=== PATIENT | male | born 1940 | race Caucasian/White ===

== ENCOUNTER 2018-04-18 04:15 | Inpatient (IN) ==
--- NOTE | 2018-04-18 04:33 | ED ---
HPI General Stated Complaint: EVAC/Weakness Time Seen by Provider: 04/18/18 04:21 History of Present Illness HPI Narrative: pt from home where he lives with invalid , pt has pressure ulcer getting worse on his foot and now has purulent discharge dark discoloraation possible ulceration necrotic or gangrene appearing foot Related Data Allergies Allergy/AdvReac Type Severity Reaction Status Date / Time No Known Allergies Allergy Verified 04/18/18 04:40 Review of Systems ROS: all other systems reviewed are negative Exam Narrative Exam Narrative: GENERAL: pt is awake but Ox2 only SKIN: right foot is mottled with a large erosion ulcerating foot heel 7 cm x 10 cm purulent odorous HEAD: Atraumatic. Normocephalic. EYES: Pupils equal and round. No scleral icterus. No injection or drainage. ENT: No nasal bleeding or discharge. Mucous membranes pink and moist. NECK: Trachea midline. No JVD. CARDIOVASCULAR: Regular rate and rhythm. RESPIRATORY: No accessory muscle use. Clear to auscultation. Breath sounds equal bilaterally. GASTROINTESTINAL: Abdomen soft, non-tender, nondistended. Hepatic and splenic margins not palpable. MUSCULOSKELETAL: Extremities lower edema R> L and ulcer 10 x 7 cm to right heel pressure ulcer now necrotic NEUROLOGICAL: Awake and alert. PSYCHIATRIC: OX2 . Medical Decision Making Differential Diagnosis Differential Diagnosis: necrotic ulcer to right foot , diabetic ulcer, pressure ulcer, sepsis , gangrene ulcer other Lab Data Result diagrams: 04/18/18 04:50 04/18/18 04:50 Discharge Plan Physicians Team ED Provider: Leif Locke Status ED Status: With Doctor
[2018-04-18] MEDS ORDERED: Vancomycin Inj 1,000 MG in Sodium Chlor 0.9% Inj 250 ML IV.SIG ONE (04:56)
[2018-04-18] MEDS ORDERED: Piperacil/Tazo 3.375 GM Premix 50 ML IV.SIG ONE (04:56)
[2018-04-18 04:59] LABS: Baso # (Auto) 0.2 th/mm3 (0.0-0.2); Baso % (Auto) 0.7 % (0.0-2.0); Hematocrit 32.4 % (39.0-51.0); Hemoglobin 10.8 gm/dL (13.0-17.0); Lymph # (Auto) 1.1 th/mm3 (1.0-4.8); Lymph % (Auto) 4.2 % (9.0-44.0); Mean Corpuscular HGB Conc 33.4 % (32.0-36.0); Mean Corpuscular Hemoglobin 29.4 pg (27.0-34.0); Mean Platelet Volume 7.9 fL (7.0-11.0); Mono # (Auto) 0.9 th/mm3 (0.0-0.9); Mono % (Auto) 3.5 % (0.0-8.0); Neut # (Auto) 24.4 th/mm3 (1.8-7.7); Neut % (Auto) 91.6 % (16.0-70.0); Platelet Count 318 th/mm3 (150-450); Red Blood Count 3.68 mil/mm3 (4.50-5.90); Red Cell Distribution Width 13.9 % (11.6-17.2); White Blood Count 26.6 th/mm3 (4.0-11.0)
[2018-04-18] MEDS ORDERED: Vancomycin Consult Pharmacy OTHER PRN (05:11)
[2018-04-18] MEDS ORDERED: Acetaminophen 325 MG Tablet PO PRN (05:12)
[2018-04-18] MEDS ORDERED: Bisacodyl 10 MG Supp RECTAL PRN (05:12)
[2018-04-18 05:16] LABS: Chloride 87 meq/L (98-107); Potassium 4.2 meq/L (3.5-5.1); Sodium 127 meq/L (136-145)
[2018-04-18 05:19] LABS: Calcium 8.3 mg/dL (8.5-10.1)
[2018-04-18 05:20] LABS: Albumin 2.1 g/dL (3.4-5.0); Anion Gap 10 meq/L (5-15); Blood Urea Nitrogen 28 mg/dL (7-18); Carbon Dioxide 30.3 meq/L (21.0-32.0); Glucose,Random 180 mg/dL (74-106); Lipase 32 U/L (73-393)
--- NOTE | 2018-04-18 05:20 | XR ---
EXAM DATE: 04/18/2018 5:16 AM EST AGE/SEX: 77 years / Male INDICATIONS: Cough CLINICAL DATA: This is the patient's initial encounter. Patient reports that signs and symptoms have been present for 1 day and indicates a pain score of 0/10. MEDICAL/SURGICAL HISTORY: None. CABG. COMPARISON: No prior exams available for comparison. FINDINGS: A single AP view of the chest demonstrates the lungs to be symmetrically aerated without evidence of mass, infiltrate or effusion. The cardiomediastinal contours are unremarkable. Osseous structures a re intact. CONCLUSION: Negative examination. Numerous median sternotomy wires. Lungs are clear. Electronically signed by: Esa Roa MD 04/18/2018 5:18 AM EST
[2018-04-18 05:23] LABS: Alanine Aminotransferase 21 U/L (12-78); Aspartate Aminotransferase 32 U/L (15-37); Glomerular Filtration Rate 49 mL/min (>89)
[2018-04-18 05:25] LABS: Total Protein 7.1 g/dL (6.4-8.2)
[2018-04-18 05:26] LABS: Alkaline Phosphatase 108 U/L (45-117)
[2018-04-18] MEDS ORDERED: Vancomycin Inj 500 MG in Sodium Chlor 0.9% Inj 100 ML IV.SIG ONE (06:00)
[2018-04-18] MEDS: Sod Chloride 0.9% Inj 1,000 ML IV.CONT SCH ×5 (08:02→23:06)
[2018-04-18] MEDS: Heparin - SQ 10,000 UNITS/ML Vial SQ SCH ×2 (08:02→20:13)
[2018-04-18] MEDS: Senna/Docusate Sodium 8.6/50 MG Tablet PO SCH ×2 (08:03→20:13)
[2018-04-18] MEDS ORDERED: Dextrose 50% in Water 50 ML Vial IV.PUSH PRN (08:10)
[2018-04-18] MEDS: Insulin NovoLOG Aspart Correctional Sugar Inj SQ SCH ×4 (08:49→20:22)
--- NOTE | 2018-04-18 12:12 | P.HP ---
History of Present Illness Primary Care Physician: UNKNOWN Chief Complaint: Foot infection Review of Systems All other systems reviewed negative except as stated in HPI [facility] - History History Provided By: Patient - Medical History Medical History: Medical History (Last Reviewed 04/18/18 @ 12:11 by Pema Monzon) COPD (chronic obstructive pulmonary disease) Depression Diabetes Heart attack Non-healing wound of right heel - Surgical History Surgical History: Surgical History (Last Reviewed 04/18/18 @ 12:11 by Pema Monzon) Amputation of left lower extremity below knee H/O heart artery stent - Social History I have reviewed the patient's Social History: Yes - Tobacco History Second Hand Smoke Exposure: No Tobacco Use In Past 30 Days: No Smoking Status: Former smoker - Alcohol History How Often Do You Have a Drink Containing Alcohol: Never - Substance Use History Substance History: No History of Abuse - Travel History Recent Travel in the [facility] Within the Last 8 Weeks: No Recent Travel Out of the Country Within the Last 8 Weeks: No - Immunization History Tetanus Immunization: Unsure Medications and Allergies Active Medications: Active Medications Acetaminophen (Tylenol) 650 mg PO Q4H PRN PRN Reason: Temp > 100.4 OR PAIN 1-4 Hydrocodone Bitart/Acetaminophen ([place] 5/325) 1 tab PO Q6H PRN PRN Reason: PAIN 5-10 Last Admin: 04/18/18 08:03 Dose: 1 tab Al Hydroxide/Mg Hydroxide (Milk Of Magnabhijit Liq) 30 ml PO Q12H PRN PRN Reason: Mild Constipation Bisacodyl (Dulcolax Supp) 10 mg RECTAL DAILY PRN PRN Reason: SEVERE CONSITIPATION Dextrose (D50w Vial) 50 ml IV.PUSH UNSCH PRN PRN Reason: PER HYPOGLYCEMIA PROTOCOL Glucagon (Glucagon Inj) 1 mg OTHER PRN PRN PRN Reason: for Hypoglycemia Protocol Heparin Sodium (Porcine) (Heparin Inj) 5,000 units SQ Q12HR [facility] Last Admin: 04/18/18 08:02 Dose: 5,000 units Cefepime HCl 1,000 mg/ Sodium (Chloride) 100 mls @ 200 mls/hr IV.SIG Q12H [facility] Sodium Chloride (Ns Inj) 1,000 mls @ 100 mls/hr IV.CONT .Q10H [facility] Last Admin: 04/18/18 08:02 Dose: 100 mls/hr Vancomycin HCl 1,500 mg/ (Sodium Chloride) 515 mls @ 250 mls/hr IV.SIG Q18H [facility] Insulin Aspart (Novolog Insulin Correctional Sugar Inj) 0 unit SQ ACHS [facility]; Protocol Last Admin: 04/18/18 08:49 Dose: 3 unit Lactulose (Lactulose Liq) 30 ml PO DAILY PRN PRN Reason: SEVERE CONSITIPATION Miscellaneous Information ([facility] Ordered Lab Info) 1 each OTHER ONCE ONE Stop: 04/20/18 11:46 Ondansetron HCl (Zofran Inj) 4 mg IV.PUSH Q6H PRN PRN Reason: NAUSEA OR VOMITING Pharmacy Profile Note (Vancomycin Consult Pharmacy) 1 each OTHER UNSCH PRN PRN Reason: Pharmacy to dose Senna/Docusate Sodium (Genia-Colace) 1 tab PO BID [facility] Last Admin: 04/18/18 08:03 Dose: 1 tab Sennosides (Senokot) 17.2 mg PO Q12H PRN PRN Reason: Moderate Constipation Allergies Allergy/AdvReac Type Severity Reaction Status Date / Time No Known Allergies Allergy Verified 04/18/18 04:40 Home Medications Medication Instructions Recorded Confirmed Type aspirin 325 mg PO DAILY 04/18/18 04/18/18 History clopidogrel [Plavix] 75 mg PO DAILY 04/18/18 04/18/18 History fluoxetine [Prozac] 10 mg PO BID 04/18/18 04/18/18 History gabapentin 300 mg PO BID 04/18/18 04/18/18 History insulin NPH and regular human 25 unit SUBCUT QPM 04/18/18 04/18/18 History [Humulin 70/30 U-100 Insulin] insulin NPH and regular human 30 unit SUBCUT QAM 04/18/18 04/18/18 History [Humulin 70/30 U-100 Insulin] losartan 100 mg PO DAILY 04/18/18 04/18/18 History oxycodone-acetaminophen [Percocet] 1 tab PO Q4H PRN 04/18/18 04/18/18 History simvastatin 40 mg PO QPM 04/18/18 04/18/18 History sotalol [Sotalol AF] 80 mg PO Q12H 04/18/18 04/18/18 History temazepam [Restoril] 15 mg PO HS PRN 04/18/18 04/18/18 History Exam Vital signs: Vital Signs 04/18/18 05:23 04/18/18 05:28 04/18/18 08:00 Temperature 99.8 F H 98.2 F Pulse Rate 72 70 Respiratory Rate 18 20 Blood Pressure 134/62 124/60 Pulse Oximetry 90 L 95 97 04/18/18 08:41 Temperature Pulse Rate Respiratory Rate 18 Blood Pressure Pulse Oximetry Intake & Output 04/17/18 04/18/18 04/18/18 18:59 06:59 18:59 Intake Total 50 / 50 350 / 350 Balance 50 / 50 350 / 350 Weight 108.862 kg Intake: IV 50 / 50 350 / 350 Zosyn 3.375 GM Premix 50 ML @ 50 / 50 100 mls/hr IV.SIG ONCE ONE Rx#: [id number] Vancomycin Inj 1,000 MG In NS 250 / 250 Inj 250 ML @ 250 mls/hr IV.SIG ONCE ONE Rx#:[id number] Vancomycin Inj 500 MG In NS Inj 100 / 100 100 ML @ 200 mls/hr IV.SIG ONCE ONE Rx#:[id number] Narrative: GENERAL: Well-developed, well-nourished patient in [facility]. SKIN: Warm and dry. No rash. HEAD: Normocephalic. Atraumatic. EYES: Pupils equal and round. No scleral icterus. No injection or drainage. ENT: No nasal bleeding or discharge. Mucous membranes pink and moist. NECK: Supple. Trachea midline. CARDIOVASCULAR: Regular rate and rhythm. S1, S2 noted. No murmur appreciated. RESPIRATORY: No accessory muscle use. Clear to auscultation. Breath sounds equal bilaterally. GASTROINTESTINAL: Abdomen soft, non-tender, nondistended. Normoactive bowel sounds x4. MUSCULOSKELETAL: No obvious deformities. Extremities without clubbing, cyanosis , or edema. NEUROLOGICAL: Awake and alert. No obvious cranial nerve deficits. Motor grossly within normal limits. 5/5 muscle strength in bilateral upper and lower extremities. Normal speech. PSYCHIATRIC: Appropriate mood and affect; insight and judgment normal. Results - Labs CBC & Chem 7: 04/18/18 04:50 04/18/18 04:50 Labs: Laboratory Results - last 24 hr 04/18/18 04/18/18 04/18/18 04:50 04:50 04:50 CBC w Diff Auto diff final WBC 26.6 H RBC 3.68 L Hgb 10.8 L Hct 32.4 L MCV 88.0 MCH 29.4 MCHC 33.4 RDW 13.9 Plt Count 318 MPV 7.9 Neut % (Auto) 91.6 H Lymph % (Auto) 4.2 L [place] % (Auto) 3.5 Eos % (Auto) 0.0 Baso % (Auto) 0.7 Neut # (Auto) 24.4 H Lymph # (Auto) 1.1 [place] # (Auto) 0.9 Eos # (Auto) 0.0 Baso # (Auto) 0.2 WBC Differential . Differential Comment . Sodium 127 L Potassium 4.2 Chloride 87 L Carbon Dioxide 30.3 Anion Gap 10 BUN 28 H Creatinine 1.40 H Estimated GFR 49 L POC Glucose Random Glucose 180 H Lactic Acid 1.5 Calcium 8.3 L Total Bilirubin 1.3 H AST 32 ALT 21 Alkaline Phosphatase 108 Total Protein 7.1 Albumin 2.1 L Lipase 32 L 04/18/18 04/18/18 08:06 11:27 CBC w Diff WBC RBC Hgb Hct MCV MCH MCHC RDW Plt Count MPV Neut % (Auto) Lymph % (Auto) [place] % (Auto) Eos % (Auto) Baso % (Auto) Neut # (Auto) Lymph # (Auto) [place] # (Auto) Eos # (Auto) Baso # (Auto) WBC Differential Differential Comment Sodium Potassium Chloride Carbon Dioxide Anion Gap BUN Creatinine Estimated GFR POC Glucose 236 H 321 H Random Glucose Lactic Acid Calcium Total Bilirubin AST ALT Alkaline Phosphatase Total Protein Albumin Lipase - Imaging Impressions Chest X-Ray 04/18/18 04:48 CONCLUSION: Negative examination. Numerous median sternotomy wires. Lungs are clear. Caprini VTE Risk Assessment Caprini VTE Risk Assessment: Moderate/High Risk (score >= 2) Caprini Risk Assessment Model: Point Value = 1 Point Value = 2 Point Value = 3 Point Value = 5 Age 41-60 Minor surgery BMI > 25 kg/m2 Swollen legs Varicose veins or History of unexplained or recurrent spontaneous Oral contraceptives or hormone replacement Sepsis (< 1 month) Serious lung disease, including pneumonia (< 1 month) Abnormal pulmonary function Acute myocardial infarction Congestive heart failure (< 1 month) History of inflammatory bowel disease Medical patient at bed rest Age 61-74 Arthroscopic surgery Major open surgery (> 45 min) Laparoscopic surgery (> 45 min) Malignancy Confined to bed (> 72 hours) Immobilizing plaster cast Central venous access Age >= 75 History of VTE Family history of VTE Factor V Leiden Prothrombin [id number] Lupus anticoagulant Anticardiolipin antibodies Elevated serum homocysteine Heparin-induced thrombocytopenia Other congenital or acquired thrombophilia Stroke (< 1 month) Elective arthroplasty Hip, pelvis, or leg fracture Acute spinal cord injury (< 1 month) Prophylaxis Regimen: Total Risk Factor Score Risk Level Prophylaxis Regimen 0-1 Low Early ambulation 2 Moderate Order ONE of the following: *Sequential Compression Device (SCD) *Heparin 5000 units SQ BID 3-4 Higher Order ONE of the following medications: *Heparin 5000 units SQ TID *Enoxaparin/Lovenox 40 mg SQ daily (WT < 150 kg, CrCl > 30 mL/min) *Enoxaparin/Lovenox 30 mg SQ daily (WT < 150 kg, CrCl > 10-29 mL/min) *Enoxaparin/Lovenox 30 mg SQ BID (WT < 150 kg, CrCl > 30 mL/min) AND/OR *Sequential Compression Device (SCD) 5 or more Highest Order ONE of the following medications: *Heparin 5000 units SQ TID (Preferred with Epidurals) *Enoxaparin/Lovenox 40 mg SQ daily (WT < 150 kg, CrCl > 30 mL/min) *Enoxaparin/Lovenox 30 mg SQ daily (WT < 150 kg, CrCl > 10-29 mL/min) *Enoxaparin/Lovenox 30 mg SQ BID (WT < 150 kg, CrCl > 30 mL/min) AND *Sequential Compression Device (SCD)
[2018-04-18] MEDS ORDERED: Insulin Detemir Inj 1,000 UNIT/10 ML Vial SQ ONE (12:25)
--- NOTE | 2018-04-18 12:25 | P.HPIM ---
History of Present Illness Primary Care Physician: UNKNOWN History of Present Illness: Patient is a 77-year-old male with a diagnosis of hypertension, does lipidemia, poorly controlled diabetes, left BKA, coronary artery disease status post CABG in the past. The patient presented to our facility with complaints of foul- smelling right lateral foot. The patient has a dark necrotic ulceration of the right foot with a harsh foul smell. He was evaluated in the emergency department found to have a significantly elevated WBC count, and a low-grade fever. He also has some pain of the right lateral foot. She he denies any fevers or chills while at home, no abdominal pain, no chest pain, no shortness of breath. He does not have any other complaints. Family history significant for diabetes, hypertension. Review of Systems All other systems reviewed negative except as stated in HPI [facility] - History History Provided By: Patient - Medical History Medical History: Medical History (Last Updated 04/18/18 @ 16:55 by Elvie Mejia MD) COPD (chronic obstructive pulmonary disease) Depression Diabetes Diabetic foot infection Heart attack MRSA (methicillin resistant Staphylococcus aureus) infection Non-healing wound of right heel PVD (peripheral vascular disease) - Surgical History Surgical History: Surgical History (Last Updated 04/18/18 @ 16:56 by Elvie Mejia MD) Amputation of left lower extremity below knee H/O heart artery stent Hx of CABG - Tobacco History Second Hand Smoke Exposure: No Tobacco Use In Past 30 Days: No Smoking Status: Former smoker - Alcohol History How Often Do You Have a Drink Containing Alcohol: Never - Substance Use History Substance History: No History of Abuse - Travel History Recent Travel in the [place] Within the Last 8 Weeks: No Recent Travel Out of the Country Within the Last 8 Weeks: No - Immunization History Tetanus Immunization: Unsure Medications and Allergies Active Medications: Active Medications Acetaminophen (Tylenol) 650 mg PO Q4H PRN PRN Reason: Temp > 100.4 OR PAIN 1-4 Hydrocodone Bitart/Acetaminophen ([place] 5/325) 1 tab PO Q6H PRN PRN Reason: PAIN 5-10 Last Admin: 04/18/18 08:03 Dose: 1 tab Al Hydroxide/Mg Hydroxide (Milk Of Magnesia Liq) 30 ml PO Q12H PRN PRN Reason: Mild Constipation Bisacodyl (Dulcolax Supp) 10 mg RECTAL DAILY PRN PRN Reason: SEVERE CONSITIPATION Dextrose (D50w Vial) 50 ml IV.PUSH UNSCH PRN PRN Reason: PER HYPOGLYCEMIA PROTOCOL Glucagon (Glucagon Inj) 1 mg OTHER PRN PRN PRN Reason: for Hypoglycemia Protocol Heparin Sodium (Porcine) (Heparin Inj) 5,000 units SQ Q12HR [facility] Last Admin: 04/18/18 08:02 Dose: 5,000 units Sodium Chloride (Ns Inj) 1,000 mls @ 100 mls/hr IV.CONT .Q10H [facility] Last Admin: 04/18/18 08:02 Dose: 100 mls/hr Vancomycin HCl 1,500 mg/ (Sodium Chloride) 515 mls @ 250 mls/hr IV.SIG Q18H [facility] Piperacillin/Tazobactam/Dextrose (Zosyn 3.375 Gm Premix) 50 mls @ 100 mls/hr IV.SIG Q6H [facility] Insulin Aspart (Novolog Insulin Correctional Sugar Inj) 0 unit SQ ACHS [facility]; Protocol Last Admin: 04/18/18 08:49 Dose: 3 unit Lactulose (Lactulose Liq) 30 ml PO DAILY PRN PRN Reason: SEVERE CONSITIPATION Miscellaneous Information ([facility] Ordered Lab Info) 1 each OTHER ONCE ONE Stop: 04/20/18 11:46 Ondansetron HCl (Zofran Inj) 4 mg IV.PUSH Q6H PRN PRN Reason: NAUSEA OR VOMITING Pharmacy Profile Note (Vancomycin Consult Pharmacy) 1 each OTHER UNSCH PRN PRN Reason: Pharmacy to dose Senna/Docusate Sodium (Genia-Colace) 1 tab PO BID [facility] Last Admin: 04/18/18 08:03 Dose: 1 tab Sennosides (Senokot) 17.2 mg PO Q12H PRN PRN Reason: Moderate Constipation Allergies Allergy/AdvReac Type Severity Reaction Status Date / Time No Known Allergies Allergy Verified 04/18/18 04:40 Home Medications Medication Instructions Recorded Confirmed Type aspirin 325 mg PO DAILY 04/18/18 04/18/18 History clopidogrel [Plavix] 75 mg PO DAILY 04/18/18 04/18/18 History fluoxetine [Prozac] 10 mg PO BID 04/18/18 04/18/18 History gabapentin 300 mg PO BID 04/18/18 04/18/18 History insulin NPH and regular human 25 unit SUBCUT QPM 11/18/18 11/18/18 History [Humulin 70/30 U-100 Insulin] insulin NPH and regular human 30 unit SUBCUT QAM 04/18/18 04/18/18 History [Humulin 70/30 U-100 Insulin] losartan 100 mg PO DAILY 04/18/18 04/18/18 History oxycodone-acetaminophen [Percocet] 1 tab PO Q4H PRN 04/18/18 04/18/18 History simvastatin 40 mg PO QPM 04/18/18 04/18/18 History sotalol [Sotalol AF] 80 mg PO Q12H 04/18/18 04/18/18 History temazepam [Restoril] 15 mg PO HS PRN 04/18/18 04/18/18 History Exam Vital signs: Vital Signs 04/18/18 05:23 04/18/18 05:28 04/18/18 08:00 Temperature 99.8 F H 98.2 F Pulse Rate 72 70 Respiratory Rate 18 20 Blood Pressure 134/62 124/60 Pulse Oximetry 90 L 95 97 04/18/18 08:41 Temperature Pulse Rate Respiratory Rate 18 Blood Pressure Pulse Oximetry Intake & Output 04/17/18 04/18/18 04/18/18 18:59 06:59 18:59 Intake Total 50 / 50 350 / 350 Balance 50 / 50 350 / 350 Weight 108.862 kg Intake: IV 50 / 50 350 / 350 Zosyn 3.375 GM Premix 50 ML @ 50 / 50 100 mls/hr IV.SIG ONCE ONE Rx#: [id number] Vancomycin Inj 1,000 MG In NS 250 / 250 Inj 250 ML @ 250 mls/hr IV.SIG ONCE ONE Rx#:[id number] Vancomycin Inj 500 MG In NS Inj 100 / 100 100 ML @ 200 mls/hr IV.SIG ONCE ONE Rx#:[id number] Narrative: General patient complains of mild pain of the right lateral foot. HEENT extraocular movements are intact Cardiovascular S1-S2 audible, RRR, no murmurs rubs or gallops Respiratory clear to auscultation bilaterally Abdomen soft, nontender, nondistended, normal bowel sounds Extremities left BKA, right foot with ulceration on the lateral side of the right foot, foul smell from the ulceration. Neuro patient can move all 4 extremities, sensation is intact bilaterally Results - Labs CBC & Chem 7: 04/18/18 04:50 04/18/18 04:50 Labs: Short CBC 04/18/18 Range/Units 04:50 WBC 26.6 H (4.0-11.0) th/mm3 Hgb 10.8 L (13.0-17.0) gm/dL Hct 32.4 L (39.0-51.0) % Plt Count 318 (150-450) th/mm3 BMP 04/18/18 04:50 Sodium 127 L Potassium 4.2 Chloride 87 L Carbon Dioxide 30.3 BUN 28 H Creatinine 1.40 H Calcium 8.3 L Liver Function 04/18/18 Range/Units 04:50 Total Bilirubin 1.3 H (0.2-1.0) mg/dL AST 32 (15-37) U/L ALT 21 (12-78) U/L Alkaline Phosphatase 108 (45-117) U/L Albumin 2.1 L (3.4-5.0) g/dL - Imaging Impressions Chest X-Ray 04/18/18 04:48 CONCLUSION: Negative examination. Numerous median sternotomy wires. Lungs are clear. Caprini VTE Risk Assessment Caprini VTE Risk Assessment: Moderate/High Risk (score >= 2) Caprini Risk Assessment Model: Point Value = 1 Point Value = 2 Point Value = 3 Point Value = 5 Age 41-60 Minor surgery BMI > 25 kg/m2 Swollen legs Varicose veins or History of unexplained or recurrent spontaneous Oral contraceptives or hormone replacement Sepsis (< 1 month) Serious lung disease, including pneumonia (< 1 month) Abnormal pulmonary function Acute myocardial infarction Congestive heart failure (< 1 month) History of inflammatory bowel disease Medical patient at bed rest Age 61-74 Arthroscopic surgery Major open surgery (> 45 min) Laparoscopic surgery (> 45 min) Malignancy Confined to bed (> 72 hours) Immobilizing plaster cast Central venous access Age >= 75 History of VTE Family history of VTE Factor V Leiden Prothrombin [id number] Lupus anticoagulant Anticardiolipin antibodies Elevated serum homocysteine Heparin-induced thrombocytopenia Other congenital or acquired thrombophilia Stroke (< 1 month) Elective arthroplasty Hip, pelvis, or leg fracture Acute spinal cord injury (< 1 month) Prophylaxis Regimen: Total Risk Factor Score Risk Level Prophylaxis Regimen 0-1 Low Early ambulation 2 Moderate Order ONE of the following: *Sequential Compression Device (SCD) *Heparin 5000 units SQ BID 3-4 Higher Order ONE of the following medications: *Heparin 5000 units SQ TID *Enoxaparin/Lovenox 40 mg SQ daily (WT < 150 kg, CrCl > 30 mL/min) *Enoxaparin/Lovenox 30 mg SQ daily (WT < 150 kg, CrCl > 10-29 mL/min) *Enoxaparin/Lovenox 30 mg SQ BID (WT < 150 kg, CrCl > 30 mL/min) AND/OR *Sequential Compression Device (SCD) 5 or more Highest Order ONE of the following medications: *Heparin 5000 units SQ TID (Preferred with Epidurals) *Enoxaparin/Lovenox 40 mg SQ daily (WT < 150 kg, CrCl > 30 mL/min) *Enoxaparin/Lovenox 30 mg SQ daily (WT < 150 kg, CrCl > 10-29 mL/min) *Enoxaparin/Lovenox 30 mg SQ BID (WT < 150 kg, CrCl > 30 mL/min) AND *Sequential Compression Device (SCD) Assessment and Plan - Plan Patient is a 77-year-old male with a diagnosis of hypertension, does lipidemia, poorly controlled diabetes, left BKA, coronary artery disease status post CABG in the past. The patient presented to our facility with complaints of foul- smelling right lateral foot. The patient has a dark necrotic ulceration of the right foot with a harsh foul smell. He was evaluated in the emergency department found to have a significantly elevated WBC count, and a low-grade fever. He also has some pain of the right lateral foot. She he denies any fevers or chills while at home, no abdominal pain, no chest pain, no shortness of breath. He does not have any other complaints. 1. Severe Sepsis secondary to right diabetic foot ulcer 2. Acute kidney injury likely secondary to #1 Patient presented with the symptoms mentioned above. He has an elevated WBC count with a left shift, lactate is normal. There is a large necrotic foul-smelling wound on the right lateral foot. X-ray of the right foot ordered. ESR, CRP also ordered. We will follow up with recommendations from the english language arts teacher. Patient's antibiotics were adjusted. Continue vancomycin and Zosyn. Patient will be started on IV fluids. Blood cultures were drawn. We will follow-up results. 3. Poorly controlled diabetes Patient will be started on Levemir 10 units subcu nightly Continue low-dose insulin sliding scale. We will adjust his diabetes regimen as needed. H&P: Quality - VTE Deep Vein Thrombosis/Pulmonary Embolism Present on Admission: No
--- NOTE | 2018-04-18 13:20 | XR ---
EXAM DATE: 04/18/2018 1:16 PM EST AGE/SEX: 77 years / Male INDICATIONS: Necrotic right foot ulcer heel area, bacteremia CLINICAL DATA: This is the patient's initial encounter. Patient reports that signs and symptoms have been present for 2 months and indicates a pain score of 6/10. MEDICAL/SURGICAL HISTORY: . diabetes CABG. COMPARISON: No prior exams available for comparison. FINDINGS: AP and lateral views of the right foot demonstrate subcutaneous air overlying the plantar soft tissue s. The adjacent osseous structures demonstrate no abnormal demineralization or periosteal reaction. T he forefoot is significant for severe degenerative changes of the first digit MTP joint. The proximal phalanx of the second metatarsal appears subluxed dorsally. There has been resection of the mid and distal phalanx of the third digit, distal phalanx of the fourth digit. No evidence of radiopaque fore ign body. CONCLUSION: Soft tissue air overlying the plantar aspect of the foot with no osseous abnormality identified to kaur ggest osteomyelitis within this region. No radiopaque foreign body. Electronically signed by: Keturah Nixon MD 04/18/2018 1:19 PM EST
[2018-04-18] MEDS: Piperacil/Tazo 3.375 GM Premix 50 ML IV.SIG SCH ×2 (13:26→18:26)
[2018-04-18] MEDS ORDERED: amLODIPine 5 MG Tablet PO ONE (14:00)
[2018-04-18 14:42] LABS: Bilirubin,Urine Negative (Negative); Clarity,Urine Slightly Cloudy (Clear); Color,Urine Yellow (Yellw/Straw); Glucose,Urine (UA) 500 mg/dL (Negative); Leukocyte Esterase,Urine Negative (Negative); Nitrite,Urine Negative (Negative); PH,Urine 5.5 (5.0-8.5); Specific Gravity,Urine 1.025 (1.002-1.035); Urobilinogen,Urine 0.2 mg/dL (Less than 2)
[2018-04-18 14:45] LABS: Collection Time,Urine 1345 hours
[2018-04-18 14:47] LABS: Amorphous Sediment,Urine Moderate /hpf; RBC,Urine 0-3 /hpf (0-3); Squamous Epithelial Cell,Urine 0-5 /hpf (0-5); WBC,Urine 0-5 /hpf (0-5)
--- NOTE | 2018-04-18 17:07 | P.CONID ---
History of Present Illness Service: Infectious Disease Consult date: 04/18/18 Requesting Physician: Maria E Gage Reason for Consult: Evaluate patient with sepsis and DFI Primary Care Provider: UNKNOWN History of Present Illness: Patient seen and examined. Records reviewed. Patient is a very poor historian. I also called the and she is also not a very good historian. Patient is a 77-year-old male, brought into the hospital for further evaluation of worsening right pain. He also mentioned that he has been having cough for about a week to 2 weeks with some shortness of breath. According to the the patient had problem with his left foot when they were still living in [place], and this was around October 2017. He subsequently underwent left AKA and went to the custodial and apparently during that time that he was sick from the left foot he started developing a decubitus on his right heel. It had progressively worsened, and they moved here in the [place] area in March and establish with a primary care physician. He was referred to a wound care center in [facility] and has been going there for the last 6 weeks. There was a home health nurse that does the dressing changes on his right foot. The really could not tell me any details about how the foot looks because she stated that she is legally blind. Patient stated that it has been having some smell to it over the last 2 weeks, but he is not sure whether it was this color for that period of time. He was last seen by the wound care doctor about a week or so ago. Patient has not been on any antibiotics recently. According to the , he was also being evaluated by a vascular surgeon and has been seen twice. The pain has been worsening, so the patient was brought to the hospital for further evaluation and treatment. He has not had any fevers or chills at home. The home health nurses checks his vital signs. Since admission his temperature has been about 100. His WBC is elevated at 26,000. Plain film of his right foot did not show any evidence of osteomyelitis. He is currently on vancomycin and Zosyn. Infectious disease consultation has been requested to assist with evaluation and treatment. Review of Systems Constitutional: Reports fever(s), Reports lack of energy, Reports night sweats, Reports weakness Eyes: Denies discharge, Denies dry eyes Ears, Nose, Mouth, and Throat: Denies difficulty swallowing, Denies headache(s) , Denies nasal discharge, Denies sore throat Cardiovascular: Reports shortness of breath, Denies chest pain Respiratory: Reports chest congestion, Reports cough, Reports shortness of breath, Reports other (yellow phlegm) Gastrointestinal: Denies abdominal pain, Denies loose stools, Denies nausea, Denies pain with swallowing, Denies vomiting Genitourinary: Denies difficulty urinating, Denies painful urination Musculoskeletal: Reports muscle weakness Skin/Breast: Reports wounds, Denies rash Neurologic: Denies localized weakness PMFSH - History History Provided By: Patient - Medical History Medical History: Medical History (Last Updated 04/18/18 @ 16:55 by Elvie Mejia MD) COPD (chronic obstructive pulmonary disease) Depression Diabetes Diabetic foot infection Heart attack MRSA (methicillin resistant Staphylococcus aureus) infection Non-healing wound of right heel PVD (peripheral vascular disease) - Surgical History Surgical History: Surgical History (Last Updated 04/18/18 @ 16:56 by Elvie Mejia MD) Amputation of left lower extremity below knee H/O heart artery stent Hx of CABG - Tobacco History Second Hand Smoke Exposure: No Tobacco Use In Past 30 Days: No Smoking Status: Former smoker - Alcohol History How Often Do You Have a Drink Containing Alcohol: Never - Substance Use History Substance History: No History of Abuse - Travel History Recent Travel in the [place] Within the Last 8 Weeks: No Recent Travel Out of the Country Within the Last 8 Weeks: No - Immunization History Tetanus Immunization: Unsure Medications and Allergies Active Medications: Active Medications Acetaminophen (Tylenol) 650 mg PO Q4H PRN PRN Reason: Temp > 100.4 OR PAIN 1-4 Hydrocodone Bitart/Acetaminophen ([place] 5/325) 1 tab PO Q6H PRN PRN Reason: PAIN 5-10 Last Admin: 04/18/18 08:03 Dose: 1 tab Al Hydroxide/Mg Hydroxide (Milk Of Magnesia Liq) 30 ml PO Q12H PRN PRN Reason: Mild Constipation Amlodipine Besylate (Norvasc) 5 mg PO DAILY [facility] Aspirin (Aspirin) 325 mg PO DAILY [facility] Atorvastatin Calcium (Lipitor) 40 mg PO HS [facility] Bisacodyl (Dulcolax Supp) 10 mg RECTAL DAILY PRN PRN Reason: SEVERE CONSITIPATION Clopidogrel Bisulfate (Plavix) 75 mg PO DAILY [facility] Dextrose (D50w Vial) 50 ml IV.PUSH UNSCH PRN PRN Reason: PER HYPOGLYCEMIA PROTOCOL Fluoxetine HCl (Prozac) 10 mg PO BID [facility] Gabapentin (Neurontin) 300 mg PO BID [facility] Glucagon (Glucagon Inj) 1 mg OTHER PRN PRN PRN Reason: for Hypoglycemia Protocol Guaifenesin (Robitussin Liq) 600 mg PO BID PRN PRN Reason: COUGH Heparin Sodium (Porcine) (Heparin Inj) 5,000 units SQ Q12HR [facility] Last Admin: 04/18/18 08:02 Dose: 5,000 units Sodium Chloride (Ns Inj) 1,000 mls @ 100 mls/hr IV.CONT .Q10H [facility] Last Admin: 04/18/18 08:02 Dose: 100 mls/hr Vancomycin HCl 1,500 mg/ (Sodium Chloride) 515 mls @ 250 mls/hr IV.SIG Q18H [facility] Piperacillin/Tazobactam/Dextrose (Zosyn 3.375 Gm Premix) 50 mls @ 100 mls/hr IV.SIG Q6H [facility] Last Infusion: 04/18/18 14:00 Dose: Infused Sodium Chloride (Ns Inj) 1,000 mls @ 100 mls/hr IV.CONT .Q10H [facility] Last Admin: 04/18/18 13:27 Dose: 100 mls/hr Insulin Aspart (Novolog Insulin Correctional Sugar Inj) 0 unit SQ ACHS [facility]; Protocol Last Admin: 04/18/18 13:25 Dose: 7 unit Lactulose (Lactulose Liq) 30 ml PO DAILY PRN PRN Reason: SEVERE CONSITIPATION Miscellaneous Information ([facility] Ordered Lab Info) 1 each OTHER ONCE ONE Stop: 04/20/18 11:46 Ondansetron HCl (Zofran Inj) 4 mg IV.PUSH Q6H PRN PRN Reason: NAUSEA OR VOMITING Pharmacy Profile Note (Vancomycin Consult Pharmacy) 1 each OTHER UNSCH PRN PRN Reason: Pharmacy to dose Senna/Docusate Sodium (Genia-Colace) 1 tab PO BID [facility] Last Admin: 04/18/18 08:03 Dose: 1 tab Sennosides (Senokot) 17.2 mg PO Q12H PRN PRN Reason: Moderate Constipation Sotalol HCl (Betapace) 80 mg PO BID [facility] Allergies Allergy/AdvReac Type Severity Reaction Status Date / Time No Known Allergies Allergy Verified 04/18/18 04:40 Home Medications Medication Instructions Recorded Confirmed Type aspirin 325 mg PO DAILY 04/18/18 04/18/18 History clopidogrel [Plavix] 75 mg PO DAILY 04/18/18 04/18/18 History fluoxetine [Prozac] 10 mg PO BID 04/18/18 04/18/18 History gabapentin 300 mg PO BID 04/18/18 04/18/18 History insulin NPH and regular human 25 unit SUBCUT QPM 04/18/18 04/18/18 History [Humulin 70/30 U-100 Insulin] insulin NPH and regular human 30 unit SUBCUT QAM 04/18/18 04/18/18 History [Humulin 70/30 U-100 Insulin] losartan 100 mg PO DAILY 04/18/18 04/18/18 History oxycodone-acetaminophen [Percocet] 1 tab PO Q4H PRN 04/18/18 04/18/18 History simvastatin 40 mg PO QPM 04/18/18 04/18/18 History sotalol [Sotalol AF] 80 mg PO Q12H 04/18/18 04/18/18 History temazepam [Restoril] 15 mg PO HS PRN 04/18/18 04/18/18 History Exam Vital signs: Vital Signs 04/18/18 05:23 04/18/18 05:28 04/18/18 08:00 Temperature 99.8 F H 98.2 F Pulse Rate 72 70 Respiratory Rate 18 20 Blood Pressure 134/62 124/60 Pulse Oximetry 90 L 95 97 04/18/18 08:41 04/18/18 12:00 Temperature 99.8 F H Pulse Rate 76 Respiratory Rate 18 20 Blood Pressure 172/72 H Pulse Oximetry Intake & Output 04/17/18 04/18/18 04/18/18 18:59 06:59 18:59 Intake Total 50 / 50 640 / 640 Balance 50 / 50 640 / 640 Weight 108.862 kg Intake: IV 50 / 50 400 / 400 Zosyn 3.375 GM Premix 50 ML @ 50 / 50 50 / 50 100 mls/hr IV.SIG Q6H [facility] Rx#: [id number] Vancomycin Inj 1,000 MG In NS 250 / 250 Inj 250 ML @ 250 mls/hr IV.SIG ONCE ONE Rx#:[id number] Vancomycin Inj 500 MG In NS Inj 100 / 100 100 ML @ 200 mls/hr IV.SIG ONCE ONE Rx#:[id number] Oral 240 / 240 Narrative: Physical examination GENERAL: Patient is a well-nourished, well-developed male, awake and alert, having paroxysms of coughing during my exam, in mild respiratory distress. SKIN: Warm and dry. No generalized rash, no ecchymoses and no evidence of embolic lesions. HEAD: Atraumatic. Normocephalic. No temporal wasting, or tenderness. EYES: [place] conjunctiva. No petechia or hemorrhage. Pupils equal, round and reactive to light. Extraocular movements full and intact. No scleral icterus. No injection or drainage. EARS, NOSE AND THROAT: Nose without bleeding or purulent nasal discharge. No sinus tenderness. Mucous membranes pink and moist. No oral lesions noted. No exudate. No oral thrush. NECK: Trachea midline. Supple and not tender, no meningeal signs CARDIOVASCULAR: Regular rate and rhythm. No murmurs, rubs or gallops heard RESPIRATORY: Clear to auscultation. Breath sounds equal bilaterally. No rales , wheezing or rhonchi ABDOMEN: Soft, non-tender, nondistended. Bowel sounds present and normoactive. No guarding. No rebound. No organomegaly. EXTREMITIES: No clubbing, cyanosis. Well healed L BKA stump. RLE: swollen, with erythema from below the knee all the way to the foot. Has some dry wounds on his R leg. There is a black wound on his heel, with some purulent drainage, and surrounding erythema and bogginess, and with foul odor. The foot is warm. No calf tenderness. Well perfused and warm. NEUROLOGICAL: Awake and alert. Cranial nerves grossly intact. Motor grossly within normal limits. PSYCHIATRIC: Normal affect, calm and cooperative. LINE: No evidence of infection Results - Labs CBC & Chem 7: 04/18/18 04:50 04/18/18 04:50 Labs: Laboratory Results - last 24 hr 04/18/18 04/18/18 04/18/18 04:50 04:50 04:50 CBC w Diff Auto diff final WBC 26.6 H RBC 3.68 L Hgb 10.8 L Hct 32.4 L MCV 88.0 MCH 29.4 MCHC 33.4 RDW 13.9 Plt Count 318 MPV 7.9 Neut % (Auto) 91.6 H Lymph % (Auto) 4.2 L [place] % (Auto) 3.5 Eos % (Auto) 0.0 Baso % (Auto) 0.7 Neut # (Auto) 24.4 H Lymph # (Auto) 1.1 [place] # (Auto) 0.9 Eos # (Auto) 0.0 Baso # (Auto) 0.2 WBC Differential . Differential Comment . ESR Sodium 127 L Potassium 4.2 Chloride 87 L Carbon Dioxide 30.3 Anion Gap 10 BUN 28 H Creatinine 1.40 H Estimated GFR 49 L POC Glucose Random Glucose 180 H Lactic Acid 1.5 Calcium 8.3 L Total Bilirubin 1.3 H AST 32 ALT 21 Alkaline Phosphatase 108 C-Reactive Protein Total Protein 7.1 Albumin 2.1 L Lipase 32 L Ur Collection Type Urine Color Urine Clarity Urine pH Ur Specific [place] Urine Protein Urine Glucose (UA) Urine Ketones Urine Occult Blood Urine Nitrate Urine Bilirubin Urine Urobilinogen Ur Leukocyte Esterase Urine RBC Urine WBC Ur Squamous Epith Cells Amorphous Sediment Granular Casts Ur Microscopic Review Urine Collection Time 04/18/18 04/18/18 04/18/18 08:06 11:27 12:45 CBC w Diff WBC RBC Hgb Hct MCV MCH MCHC RDW Plt Count MPV Neut % (Auto) Lymph % (Auto) [place] % (Auto) Eos % (Auto) Baso % (Auto) Neut # (Auto) Lymph # (Auto) [place] # (Auto) Eos # (Auto) Baso # (Auto) WBC Differential Differential Comment ESR 103 H Sodium Potassium Chloride Carbon Dioxide Anion Gap BUN Creatinine Estimated GFR POC Glucose 236 H 321 H Random Glucose Lactic Acid Calcium Total Bilirubin AST ALT Alkaline Phosphatase C-Reactive Protein Total Protein Albumin Lipase Ur Collection Type Urine Color Urine Clarity Urine pH Ur Specific [place] Urine Protein Urine Glucose (UA) Urine Ketones Urine Occult Blood Urine Nitrate Urine Bilirubin Urine Urobilinogen Ur Leukocyte Esterase Urine RBC Urine WBC Ur Squamous Epith Cells Amorphous Sediment Granular Casts Ur Microscopic Review Urine Collection Time 04/18/18 04/18/18 12:45 13:45 CBC w Diff WBC RBC Hgb Hct MCV MCH MCHC RDW Plt Count MPV Neut % (Auto) Lymph % (Auto) [place] % (Auto) Eos % (Auto) Baso % (Auto) Neut # (Auto) Lymph # (Auto) [place] # (Auto) Eos # (Auto) Baso # (Auto) WBC Differential Differential Comment ESR Sodium Potassium Chloride Carbon Dioxide Anion Gap BUN Creatinine Estimated GFR POC Glucose Random Glucose Lactic Acid Calcium Total Bilirubin AST ALT Alkaline Phosphatase C-Reactive Protein 37.00 H Total Protein Albumin Lipase Ur Collection Type Clean catch Urine Color Yellow Urine Clarity Slightly cloudy Urine pH 5.5 Ur Specific [place] 1.025 Urine Protein 30 H Urine Glucose (UA) 500 H Urine Ketones Negative Urine Occult Blood Small H Urine Nitrate Negative Urine Bilirubin Negative Urine Urobilinogen 0.2 Ur Leukocyte Esterase Negative Urine RBC 0-3 Urine WBC 0-5 Ur Squamous Epith Cells 0-5 Amorphous Sediment Moderate H Granular Casts 1-3 H Ur Microscopic Review Microscopic reviewed Urine Collection Time 1345 - Imaging Impressions Foot X-Ray 04/18/18 00:00 CONCLUSION: Soft tissue air overlying the plantar aspect of the foot with no osseous abnormality identified to suggest osteomyelitis within this region. No radiopaque foreign body. Chest X-Ray 04/18/18 04:48 CONCLUSION: Negative examination. Numerous median sternotomy wires. Lungs are clear. Assessment and Plan - Plan Impression Possible sepsis due to DFI, has ischemic infected decubitus R heel PVD DM COPD - C/O SOB, ?exacerbation, CXR clear Renal insufficiency, ?baseline, ?worsened by sepsis Recommendation Continue Abx: vancomycin and Zosyn Podiatry evaluation MRI R foot Vascular evaluation Follow C/S Follow temps Follow CBC Arterial doppler Monitor progress I will determine course of Rx once work-up is completed I will follow along with you Thank you for this consultation
[2018-04-18] MEDS: Gabapentin 300 MG Capsule PO SCH (20:12)
[2018-04-18] MEDS: FLUoxetine 10 MG Capsule PO SCH (20:13)
[2018-04-19] MEDS: Piperacil/Tazo 3.375 GM Premix 50 ML IV.SIG SCH ×4 (01:01→18:17)
[2018-04-19] MEDS: Vancomycin Inj 1,500 MG in Sodium Chlor 0.9% Inj 500 ML IV.SIG SCH ×2 (01:21→18:52)
[2018-04-19] MEDS: Sod Chloride 0.9% Inj 1,000 ML IV.CONT SCH ×5 (03:07→23:48)
--- NOTE | 2018-04-19 08:14 | ECHRPT ---
EXAM DATE: 04/19/2018 7:59 AM EST AGE/SEX: 77 years / Male INDICATIONS: Necrotic foot ulcer CLINICAL DATA: This is the patient's initial encounter. Patient reports that signs and symptoms have been present for 1 month and indicates a pain score of 9/10. MEDICAL/SURGICAL HISTORY: . COPD, depression, diabetes mellitus, diabetic foot infection, heart attack, MRSA, nonhealing heel wound right, peripheral vascular disease . left AKA, heart artery tracy nt, cabg COMPARISON: No prior exams available for comparison. TECHNIQUE: Four-cuff ankle and brachial pressures were obtained. Pulse cuff waveform tracings of the ankles were recorded, and ankle-brachial indices were calculated. PRESSURES (mmHg): Brachial (arm) : RIGHT: 130, LEFT: IV SITE Ankle : RIGHT: 40, LEFT: AKA SCOOBY : RIGHT: 0.31, LEFT: N/A FINDINGS: Pulsed-Cuff Waveform: There are good upstroke and a dicrotic downstroke of the tracings. Other: Patient has amputation on the left. CONCLUSION: 1. Severe reduction of the SCOOBY on the right. Electronically signed by: Javi Robbins MD 04/19/2018 8:12 AM EST
[2018-04-19] MEDS: Insulin NovoLOG Aspart Correctional Sugar Inj SQ SCH ×5 (08:30→20:58)
[2018-04-19] MEDS: Heparin - SQ 10,000 UNITS/ML Vial SQ SCH ×2 (08:39→20:59)
[2018-04-19] MEDS: Senna/Docusate Sodium 8.6/50 MG Tablet PO SCH ×2 (08:39→20:58)
[2018-04-19] MEDS: Gabapentin 300 MG Capsule PO SCH ×2 (08:39→20:57)
[2018-04-19] MEDS: amLODIPine 5 MG Tablet PO SCH (08:40)
[2018-04-19] MEDS ORDERED: FLUoxetine 20 MG Capsule PO SCH (09:00)
--- NOTE | 2018-04-19 09:42 | P.PNIM ---
Subjective Interval history: f/u; right foot infection in no acute distress. has some pain to the right foot. no fever. d/w the RN and no acute issues over night. Physical Exam Vital signs: Vital Signs 04/18/18 12:00 04/18/18 16:00 04/18/18 20:00 Temperature 99.8 F H 100 F H 103.0 F H Pulse Rate 76 85 94 H Respiratory Rate 20 20 18 Blood Pressure 172/72 H 130/59 L 174/73 H Pulse Oximetry 91 L 93 L 92 L 04/19/18 00:00 04/19/18 04:00 04/19/18 08:00 Temperature 97.8 F 98 F 97.7 F Pulse Rate 61 60 60 Respiratory Rate 16 16 Blood Pressure 100/74 103/53 L 143/66 H Pulse Oximetry 92 L 92 L 95 Intake & Output 04/18/18 04/19/18 04/19/18 18:59 06:59 18:59 Intake Total 1900 / 1900 2810 / 2810 Output Total 300 / 300 400 / 400 Balance 1600 / 1600 2410 / 2410 Weight 108.8 kg Intake: IV 1300 / 1300 2450 / 2450 NS Inj 1,000 ML @ 100 mls/hr IV 900 / 900 1750 / 1750 .CONT .Q10H [facility] Rx#:[id number] Zosyn 3.375 GM Premix 50 ML @ 50 / 50 150 / 150 100 mls/hr IV.SIG Q6H [facility] Rx#: [id number] Vancomycin Inj 1,000 MG In NS 250 / 250 Inj 250 ML @ 250 mls/hr IV.SIG ONCE ONE Rx#:[id number] Vancomycin Inj 1,500 MG In NS 550 / 550 Inj 500 ML @ 250 mls/hr IV.SIG Q18H [facility] Rx#:[id number] Vancomycin Inj 500 MG In NS Inj 100 / 100 100 ML @ 200 mls/hr IV.SIG ONCE ONE Rx#:[id number] Oral 600 / 600 360 / 360 Output: Urine 300 / 300 400 / 400 Other: # Bowel Movements 1 1 - Constitutional no acute distress - Routine Respiratory Exam Present: CTA bilaterally - Routine Cardiovascular Exam Present: RRR - Routine Abdominal Exam Present: soft - Routine Extremities Exam Comments: right foot covered with clean dressing. s/p left BKA. - Routine Neurological Exam Present: alert, oriented X3 Results - Labs CBC & Chem 7: 04/18/18 04:50 04/18/18 04:50 Laboratory Results - last 24 hr 04/18/18 04/18/18 04/18/18 11:27 12:45 12:45 ESR 103 H POC Glucose 321 H C-Reactive Protein 37.00 H Ur Collection Type Urine Color Urine Clarity Urine pH Ur Specific [place] Urine Protein Urine Glucose (UA) Urine Ketones Urine Occult Blood Urine Nitrate Urine Bilirubin Urine Urobilinogen Ur Leukocyte Esterase Urine RBC Urine WBC Ur Squamous Epith Cells Amorphous Sediment Granular Casts Ur Microscopic Review Urine Collection Time 04/18/18 04/18/18 04/18/18 13:45 16:47 20:22 ESR POC Glucose 264 H 305 H C-Reactive Protein Ur Collection Type Clean catch Urine Color Yellow Urine Clarity Slightly cloudy Urine pH 5.5 Ur Specific [place] 1.025 Urine Protein 30 H Urine Glucose (UA) 500 H Urine Ketones Negative Urine Occult Blood Small H Urine Nitrate Negative Urine Bilirubin Negative Urine Urobilinogen 0.2 Ur Leukocyte Esterase Negative Urine RBC 0-3 Urine WBC 0-5 Ur Squamous Epith Cells 0-5 Amorphous Sediment Moderate H Granular Casts 1-3 H Ur Microscopic Review Microscopic reviewed Urine Collection Time 1345 - Imaging Impressions Extremity Arterial Study 04/18/18 00:00 CONCLUSION: 1. Severe reduction of the SCOOBY on the right. Foot X-Ray 04/18/18 00:00 CONCLUSION: Soft tissue air overlying the plantar aspect of the foot with no osseous abnormality identified to suggest osteomyelitis within this region. No radiopaque foreign body. Assessment and Plan - Plan 1. Severe Sepsis secondary to right diabetic foot ulcer continue with IV antibiotics- will follow the cultures- ID and podiatry consulted- continue pain control. 2. renal insufficiency with unknown duration continue to monitor the renal function. 3. Poorly controlled diabetes resume his home insulin regimen.Continue low-dose insulin sliding scale. We will adjust his diabetes regimen as needed. 4. hyponatremia; due to hyperglycemia; will monitor 5.DVT prophylaxis;subq Heparin Discharge Planning: w/u in progress.
--- NOTE | 2018-04-19 10:19 | P.PNID ---
Subjective Remarks: Patient is a 77-year-old male, brought into the hospital for further evaluation of worsening right pain. He also mentioned that he has been having cough for about a week to 2 weeks with some shortness of breath. According to the the patient had problem with his left foot when they were still living in [place], and this was around October 2017. He subsequently underwent left AKA and went to the group home and apparently during that time that he was sick from the left foot he started developing a decubitus on his right heel. It had progressively worsened, and they moved here in the [place] area in March and establish with a primary care physician. He was referred to a wound care center in [facility] and has been going there for the last 6 weeks. There was a home health nurse that does the dressing changes on his right foot. The really could not tell me any details about how the foot looks because she stated that she is legally blind. Patient stated that it has been having some smell to it over the last 2 weeks, but he is not sure whether it was this color for that period of time. He was last seen by the wound care doctor about a week or so ago. Patient has not been on any antibiotics recently. According to the , he was also being evaluated by a vascular surgeon and has been seen twice. The pain has been worsening, so the patient was brought to the hospital for further evaluation and treatment. He has not had any fevers or chills at home. The home health nurses checks his vital signs. Since admission his temperature has been about 100. His WBC is elevated at 26,000. Plain film of his right foot did not show any evidence of osteomyelitis. He is currently on vancomycin and Zosyn. Infectious disease consultation has been requested to assist with evaluation and treatment. Notes reviewed Febrile last night up to 103 C/O foot pain Called by MRI - patient has spinal stimulator and not compatible with MRI Patient is a very poor historian Vascular surgery to evaluate BC and wound C/S pending Podiatry consult pending Antibiotics: Vancomycin Zosyn Lines: PIV Past Medical History: COPD (chronic obstructive pulmonary disease) Depression Diabetes Diabetic foot infection Heart attack MRSA (methicillin resistant Staphylococcus aureus) infection Non-healing wound of right heel PVD (peripheral vascular disease Amputation of left lower extremity below knee H/O heart artery stent Hx of CABG Spinal stimulator 2012 Allergies/Adverse Reactions: Allergies No Known Allergies Allergy (Verified 04/18/18 04:40) pollen Objective Vital Signs 04/18/18 12:00 04/18/18 16:00 04/18/18 20:00 Temperature 99.8 F H 100 F H 103.0 F H Pulse Rate 76 85 94 H Respiratory Rate 20 20 18 Blood Pressure 172/72 H 130/59 L 174/73 H Pulse Oximetry 91 L 93 L 92 L 04/19/18 00:00 04/19/18 04:00 04/19/18 08:00 Temperature 97.8 F 98 F 97.7 F Pulse Rate 61 60 60 Respiratory Rate 16 16 Blood Pressure 100/74 103/53 L 143/66 H Pulse Oximetry 92 L 92 L 95 Intake & Output 04/18/18 04/19/18 04/19/18 18:59 06:59 18:59 Intake Total 1900 / 1900 2810 / 2810 Output Total 300 / 300 400 / 400 Balance 1600 / 1600 2410 / 2410 Weight 108.8 kg Intake: IV 1300 / 1300 2450 / 2450 NS Inj 1,000 ML @ 100 mls/hr IV 900 / 900 1750 / 1750 .CONT .Q10H [facility] Rx#:[id number] Zosyn 3.375 GM Premix 50 ML @ 50 / 50 150 / 150 100 mls/hr IV.SIG Q6H [facility] Rx#: [id number] Vancomycin Inj 1,000 MG In NS 250 / 250 Inj 250 ML @ 250 mls/hr IV.SIG ONCE ONE Rx#:[id number] Vancomycin Inj 1,500 MG In NS 550 / 550 Inj 500 ML @ 250 mls/hr IV.SIG Q18H [facility] Rx#:[id number] Vancomycin Inj 500 MG In NS Inj 100 / 100 100 ML @ 200 mls/hr IV.SIG ONCE ONE Rx#:[id number] Oral 600 / 600 360 / 360 Output: Urine 300 / 300 400 / 400 Other: # Bowel Movements 1 1 04/18/18 05:00 Wound - Foot Gram Stain - Pending 04/18/18 05:00 Wound - Foot Wound Culture - Pending 04/18/18 04:30 Blood - Peripheral Aerobic Blood Culture - Pending 04/18/18 04:30 Blood - Peripheral Anaerobic Blood Culture - Pending 04/18/18 04:50 Blood - Peripheral Aerobic Blood Culture - Pending 04/18/18 04:50 Blood - Peripheral Anaerobic Blood Culture - Pending Lab - Hematology Results 04/18/18 04/18/18 04:50 12:45 CBC w Diff Auto diff final WBC 26.6 H RBC 3.68 L Hgb 10.8 L Hct 32.4 L MCV 88.0 MCH 29.4 MCHC 33.4 RDW 13.9 Plt Count 318 MPV 7.9 Neut % (Auto) 91.6 H Lymph % (Auto) 4.2 L Lamar % (Auto) 3.5 Eos % (Auto) 0.0 Baso % (Auto) 0.7 Neut # (Auto) 24.4 H Lymph # (Auto) 1.1 Lamar # (Auto) 0.9 Eos # (Auto) 0.0 Baso # (Auto) 0.2 WBC Differential . Differential Comment . ESR 103 H Lab - Chemistry Results 04/18/18 04/18/18 04/18/18 04:50 04:50 08:06 Sodium 127 L Potassium 4.2 Chloride 87 L Carbon Dioxide 30.3 Anion Gap 10 BUN 28 H Creatinine 1.40 H Estimated GFR 49 L POC Glucose 236 H Random Glucose 180 H Lactic Acid 1.5 Calcium 8.3 L Total Bilirubin 1.3 H AST 32 ALT 21 Alkaline Phosphatase 108 C-Reactive Protein Total Protein 7.1 Albumin 2.1 L Lipase 32 L 04/18/18 04/18/18 04/18/18 11:27 12:45 16:47 Sodium Potassium Chloride Carbon Dioxide Anion Gap BUN Creatinine Estimated GFR POC Glucose 321 H 264 H Random Glucose Lactic Acid Calcium Total Bilirubin AST ALT Alkaline Phosphatase C-Reactive Protein 37.00 H Total Protein Albumin Lipase 04/18/18 04/19/18 20:22 09:54 Sodium Potassium Chloride Carbon Dioxide Anion Gap BUN Creatinine Estimated GFR POC Glucose 305 H 174 H Random Glucose Lactic Acid Calcium Total Bilirubin AST ALT Alkaline Phosphatase C-Reactive Protein Total Protein Albumin Lipase Imaging: ITS Impressions Extremity Arterial Study 04/18/18 00:00 CONCLUSION: 1. Severe reduction of the SCOOBY on the right. Foot X-Ray 04/18/18 00:00 CONCLUSION: Soft tissue air overlying the plantar aspect of the foot with no osseous abnormality identified to suggest osteomyelitis within this region. No radiopaque foreign body. Chest X-Ray 04/18/18 04:48 CONCLUSION: Negative examination. Numerous median sternotomy wires. Lungs are clear. Physical Exam: GENERAL: awake and alert, not in respiratory distress SKIN: Warm and dry. No generalized rash, no ecchymoses and no evidence of embolic lesions. HEAD: Atraumatic. Normocephalic. No temporal wasting, or tenderness. EYES: [place] conjunctiva. No petechia or hemorrhage. Pupils equal, round and reactive to light. Extraocular movements full and intact. No scleral icterus. No injection or drainage. EARS, NOSE AND THROAT: Nose without bleeding or purulent nasal discharge. No sinus tenderness. Mucous membranes pink and moist. No oral lesions noted. No exudate. No oral thrush. NECK: Trachea midline. Supple and not tender, no meningeal signs CARDIOVASCULAR: Regular rate and rhythm. No murmurs, rubs or gallops heard RESPIRATORY: Clear to auscultation. Breath sounds equal bilaterally. No rales , wheezing or rhonchi ABDOMEN: Soft, non-tender, nondistended. Bowel sounds present and normoactive. No guarding. No rebound. No organomegaly. EXTREMITIES: No clubbing, cyanosis. Well healed L BKA stump. RLE: swelling better, and redness better in his R leg. There is a black wound on his heel, with some purulent drainage, and surrounding erythema and bogginess, and with foul odor. The foot is warm. No calf tenderness. Well perfused and warm. NEUROLOGICAL: Awake and alert. Cranial nerves grossly intact. Motor grossly within normal limits. PSYCHIATRIC: Normal affect, calm and cooperative. LINE: No evidence of infection Assessment and Plan - Plan Impression Possible sepsis due to DFI, has ischemic infected decubitus R heel PVD DM COPD - C/O SOB, ?exacerbation, CXR clear Renal insufficiency, ?baseline, ?worsened by sepsis Recommendation Continue Abx: vancomycin and Zosyn Podiatry evaluation CT R foot with 3D reconstruction Vascular evaluation Follow C/S Follow temps Follow CBC Monitor progress
--- NOTE | 2018-04-19 11:10 | P.CONVS ---
History of Present Illness Service: Cardiovascular Consult date: 04/19/18 Reason for Consult: R LE heel wound Primary Care Provider: UNKNOWN Chief Complaint: Chronic worsening R heel wound History of Present Illness: 77/M with a PMH of DM, hyperlipidemia and LEFT below the knee amputation Pt presented to the ED c/o a chronic malodorous necrotic heel wound to his R LE for an unknown duration of time Pt reported he recently underwent a R LE angiogram w/ stent placement at another institution several months ago Pt reported he has not been ambulating and gets around mostly w/ a wheelchair Review of Systems Constitutional: Denies body ache(s), Denies chills, Denies weakness Cardiovascular: Reports foot swelling (Right) Musculoskeletal: Reports other (L BKA ), Denies body aches Skin/Breast: Reports non-healing lesions (R heel ) PMFSH - History History Provided By: Patient - Medical History Medical History: Medical History (Last Reviewed 04/19/18 @ 10:42 by Yandy Vidal) COPD (chronic obstructive pulmonary disease) Depression Diabetes Diabetic foot infection Heart attack MRSA (methicillin resistant Staphylococcus aureus) infection Non-healing wound of right heel PVD (peripheral vascular disease) - Surgical History Surgical History: Surgical History (Last Reviewed 04/19/18 @ 10:42 by Yandy Vidal) Amputation of left lower extremity below knee H/O heart artery stent Hx of CABG - Social History I have reviewed the patient's Social History: Yes - Tobacco History Second Hand Smoke Exposure: No Tobacco Use In Past 30 Days: No Smoking Status: Former smoker - Alcohol History How Often Do You Have a Drink Containing Alcohol: Never - Substance Use History Substance History: No History of Abuse - Travel History Recent Travel in the [place] Within the Last 8 Weeks: No Recent Travel Out of the Country Within the Last 8 Weeks: No - Immunization History Tetanus Immunization: Unsure Hx Influenza Vaccine This Season: Yes Medications and Allergies Allergies Allergy/AdvReac Type Severity Reaction Status Date / Time No Known Allergies Allergy Verified 04/18/18 04:40 Home Medications Medication Instructions Recorded Confirmed Type aspirin 325 mg PO DAILY 04/18/18 04/18/18 History clopidogrel [Plavix] 75 mg PO DAILY 04/18/18 04/18/18 History fluoxetine [Prozac] 10 mg PO BID 04/18/18 04/18/18 History gabapentin 300 mg PO BID 04/18/18 04/18/18 History insulin NPH and regular human 25 unit SUBCUT QPM 04/18/18 04/18/18 History [Humulin 70/30 U-100 Insulin] insulin NPH and regular human 30 unit SUBCUT QAM 04/18/18 04/18/18 History [Humulin 70/30 U-100 Insulin] losartan 100 mg PO DAILY 04/18/18 04/18/18 History oxycodone-acetaminophen [Percocet] 1 tab PO Q4H PRN 04/18/18 04/18/18 History simvastatin 40 mg PO QPM 04/18/18 04/18/18 History sotalol [Sotalol AF] 80 mg PO Q12H 04/18/18 04/18/18 History temazepam [Restoril] 15 mg PO HS PRN 04/18/18 04/18/18 History Active Medications: Active Medications Acetaminophen (Tylenol) 650 mg PO Q4H PRN PRN Reason: Temp > 100.4 OR PAIN 1-4 Last Admin: 04/18/18 20:14 Dose: 650 mg Hydrocodone Bitart/Acetaminophen (Avenel 5/325) 1 tab PO Q4H PRN PRN Reason: PAIN 5-10 Al Hydroxide/Mg Hydroxide (Milk Of Magnabhijit Liq) 30 ml PO Q12H PRN PRN Reason: Mild Constipation Amlodipine Besylate (Norvasc) 5 mg PO DAILY [facility] Last Admin: 04/19/18 08:40 Dose: 5 mg Aspirin (Aspirin) 325 mg PO DAILY [facility] Atorvastatin Calcium (Lipitor) 40 mg PO HS [facility] Last Admin: 04/18/18 20:12 Dose: 40 mg Bisacodyl (Dulcolax Supp) 10 mg RECTAL DAILY PRN PRN Reason: SEVERE CONSITIPATION Clopidogrel Bisulfate (Plavix) 75 mg PO DAILY [facility] Last Admin: 04/19/18 08:39 Dose: 75 mg Dextrose (D50w Vial) 50 ml IV.PUSH UNSCH PRN PRN Reason: PER HYPOGLYCEMIA PROTOCOL Fluoxetine HCl (Prozac) 10 mg PO BID [facility] Last Admin: 04/18/18 20:13 Dose: 10 mg Gabapentin (Neurontin) 300 mg PO BID [facility] Last Admin: 04/19/18 08:39 Dose: 300 mg Glucagon (Glucagon Inj) 1 mg OTHER PRN PRN PRN Reason: for Hypoglycemia Protocol Guaifenesin (Robitussin Liq) 600 mg PO BID PRN PRN Reason: COUGH Last Admin: 04/19/18 03:09 Dose: 600 mg Heparin Sodium (Porcine) (Heparin Inj) 5,000 units SQ Q12HR [facility] Last Admin: 04/19/18 08:39 Dose: 5,000 units Sodium Chloride (Ns Inj) 1,000 mls @ 100 mls/hr IV.CONT .Q10H [facility] Last Admin: 04/19/18 03:07 Dose: Not Given Vancomycin HCl 1,500 mg/ (Sodium Chloride) 515 mls @ 250 mls/hr IV.SIG Q18H [facility] Last Infusion: 04/19/18 03:25 Dose: Infused Piperacillin/Tazobactam/Dextrose (Zosyn 3.375 Gm Premix) 50 mls @ 100 mls/hr IV.SIG Q6H [facility] Last Infusion: 04/19/18 06:58 Dose: Infused Sodium Chloride (Ns Inj) 1,000 mls @ 100 mls/hr IV.CONT .Q10H [facility] Last Admin: 04/18/18 23:06 Dose: Not Given Insulin Aspart (Novolog Insulin Correctional Sugar Inj) 0 unit SQ ACHS [facility]; Protocol Last Admin: 04/18/18 20:22 Dose: 7 unit Insulin Human Isoph/Insulin Regular (Novolin 70/30 Inj) 25 units SQ QPM [facility] Insulin Human Isoph/Insulin Regular (Novolin 70/30 Inj) 30 units SQ DAILY [facility] Lactulose (Lactulose Liq) 30 ml PO DAILY PRN PRN Reason: SEVERE CONSITIPATION Miscellaneous Information ([facility] Ordered Lab Info) 1 each OTHER ONCE ONE Stop: 04/20/18 11:46 Ondansetron HCl (Zofran Inj) 4 mg IV.PUSH Q6H PRN PRN Reason: NAUSEA OR VOMITING Pharmacy Profile Note (Vancomycin Consult Pharmacy) 1 each OTHER UNSCH PRN PRN Reason: Pharmacy to dose Senna/Docusate Sodium (Genia-Colace) 1 tab PO BID [facility] Last Admin: 04/19/18 08:39 Dose: 1 tab Sennosides (Senokot) 17.2 mg PO Q12H PRN PRN Reason: Moderate Constipation Sotalol HCl (Betapace) 80 mg PO BID [facility] Last Admin: 11/19/18 08:40 Dose: 80 mg Physical Exam Vital Signs / I&O: Vital Signs 04/18/18 12:00 04/18/18 16:00 04/18/18 20:00 Temperature 99.8 F H 100 F H 103.0 F H Pulse Rate 76 85 94 H Respiratory Rate 20 20 18 Blood Pressure 172/72 H 130/59 L 174/73 H Pulse Oximetry 91 L 93 L 92 L 04/19/18 00:00 04/19/18 04:00 04/19/18 08:00 Temperature 97.8 F 98 F 97.7 F Pulse Rate 61 60 60 Respiratory Rate 16 16 Blood Pressure 100/74 103/53 L 143/66 H Pulse Oximetry 92 L 92 L 95 Intake & Output 04/18/18 04/19/18 04/19/18 18:59 06:59 18:59 Intake Total 1900 / 1900 2810 / 2810 Output Total 300 / 300 400 / 400 Balance 1600 / 1600 2410 / 2410 Weight 108.8 kg Intake: IV 1300 / 1300 2450 / 2450 NS Inj 1,000 ML @ 100 mls/hr IV 900 / 900 1750 / 1750 .CONT .Q10H [facility] Rx#:[id number] Zosyn 3.375 GM Premix 50 ML @ 50 / 50 150 / 150 100 mls/hr IV.SIG Q6H [facility] Rx#: [id number] Vancomycin Inj 1,000 MG In NS 250 / 250 Inj 250 ML @ 250 mls/hr IV.SIG ONCE ONE Rx#:[id number] Vancomycin Inj 1,500 MG In NS 550 / 550 Inj 500 ML @ 250 mls/hr IV.SIG Q18H [facility] Rx#:[id number] Vancomycin Inj 500 MG In NS Inj 100 / 100 100 ML @ 200 mls/hr IV.SIG ONCE ONE Rx#:[id number] Oral 600 / 600 360 / 360 Output: Urine 300 / 300 400 / 400 Other: # Bowel Movements 1 1 Neuro: Speech clear A&Ox3 GCS 15 Neck: No JVD distention Heart: RRR Lungs: Resp even and CTA Abdomen: S/NT Vascular: STATEMENT CLERK R/L femoral pulses NO R DP/PT Malodorous dry necrotic R heel wound Extremities: L BKA hx of Laboratory Results - last 24 hr 04/18/18 04/18/18 04/18/18 11:27 12:45 12:45 ESR 103 H POC Glucose 321 H C-Reactive Protein 37.00 H Ur Collection Type Urine Color Urine Clarity Urine pH Ur Specific [place] Urine Protein Urine Glucose (UA) Urine Ketones Urine Occult Blood Urine Nitrate Urine Bilirubin Urine Urobilinogen Ur Leukocyte Esterase Urine RBC Urine WBC Ur Squamous Epith Cells Amorphous Sediment Granular Casts Ur Microscopic Review Urine Collection Time 04/18/18 04/18/18 04/18/18 13:45 16:47 20:22 ESR POC Glucose 264 H 305 H C-Reactive Protein Ur Collection Type Clean catch Urine Color Yellow Urine Clarity Slightly cloudy Urine pH 5.5 Ur Specific [place] 1.025 Urine Protein 30 H Urine Glucose (UA) 500 H Urine Ketones Negative Urine Occult Blood Small H Urine Nitrate Negative Urine Bilirubin Negative Urine Urobilinogen 0.2 Ur Leukocyte Esterase Negative Urine RBC 0-3 Urine WBC 0-5 Ur Squamous Epith Cells 0-5 Amorphous Sediment Moderate H Granular Casts 1-3 H Ur Microscopic Review Microscopic reviewed Urine Collection Time 1345 04/19/18 09:54 ESR POC Glucose 174 H C-Reactive Protein Ur Collection Type Urine Color Urine Clarity Urine pH Ur Specific [place] Urine Protein Urine Glucose (UA) Urine Ketones Urine Occult Blood Urine Nitrate Urine Bilirubin Urine Urobilinogen Ur Leukocyte Esterase Urine RBC Urine WBC Ur Squamous Epith Cells Amorphous Sediment Granular Casts Ur Microscopic Review Urine Collection Time Microbiology 04/18/18 05:00 Gram Stain - Final Wound - Foot Impressions Extremity Arterial Study 04/18/18 00:00 CONCLUSION: 1. Severe reduction of the SCOOBY on the right. Foot X-Ray 04/18/18 00:00 CONCLUSION: Soft tissue air overlying the plantar aspect of the foot with no osseous abnormality identified to suggest osteomyelitis within this region. No radiopaque foreign body. Chest X-Ray 04/18/18 04:48 CONCLUSION: Negative examination. Numerous median sternotomy wires. Lungs are clear. Assessment and Plan - Plan 77 non ambulatory male presenting w/ a malodorous necrotic R heel wound for an unknown duration of time. Probable osteo, MRI pending R LE warm w/ motor intact Non palpable distal pulses noted SCOOBY reviewed- pt w/ severe arterial occlusive disease Pt reported recent R LE stent placement several months ago Discussed w/ pt- may need an amputation at some point, pt only interested in limb salvage. Plan Ordered a R LE arterial duplex - recommendations to follow Continue medial management- anticoagulation/Statin therapy Continue pain control Yandy Vidal NP [facility] [place] [phone] I saw and examined the patient, agree with assessment and plan with nurse practitioner. The date of service is 04/19/2018. Right heel ulcer with wet gangrene. Podiatry evaluation, MRI results are pending. Patient is currently only interested in a limb salvage. We will obtain duplex ultrasound, ABIs, toe pressures to evaluate for peripheral vascular occlusive disease. We will continue to follow Thank you for allowing us to participate in this patient care Lan Abbasi MD [facility] [place] [facility] [place] [phone]
[2018-04-19] MEDS: FLUoxetine 10 MG Capsule PO SCH ×2 (11:18→20:56)
[2018-04-19] MEDS: Aspirin 325 MG Tablet PO SCH (11:18)
[2018-04-19 11:40] LABS: Eos % (Auto) 0.1 % (0.0-4.0); Hematocrit 29.4 % (39.0-51.0); Hemoglobin 9.5 gm/dL (13.0-17.0); Lymph # (Auto) 0.6 th/mm3 (1.0-4.8); Lymph % (Auto) 2.7 % (9.0-44.0); Mean Corpuscular HGB Conc 32.3 % (32.0-36.0); Mean Corpuscular Hemoglobin 28.8 pg (27.0-34.0); Mean Corpuscular Volume 89.1 fL (80.0-100.0); Mean Platelet Volume 7.8 fL (7.0-11.0); Mono # (Auto) 1.4 th/mm3 (0.0-0.9); Mono % (Auto) 6.6 % (0.0-8.0); Neut # (Auto) 19.5 th/mm3 (1.8-7.7); Neut % (Auto) 90.6 % (16.0-70.0); Platelet Count 257 th/mm3 (150-450); White Blood Count 21.5 th/mm3 (4.0-11.0)
[2018-04-19 12:10] LABS: Albumin 1.6 g/dL (3.4-5.0); Anion Gap 7 meq/L (5-15); Aspartate Aminotransferase 38 U/L (15-37); Blood Urea Nitrogen 25 mg/dL (7-18); Calcium 7.7 mg/dL (8.5-10.1); Carbon Dioxide 29.5 meq/L (21.0-32.0); Chloride 96 meq/L (98-107); Glomerular Filtration Rate 74 mL/min (>89); Glucose,Random 177 mg/dL (74-106); Magnesium 1.8 mg/dL (1.5-2.5); Potassium 3.8 meq/L (3.5-5.1); Sodium 132 meq/L (136-145)
[2018-04-19 12:11] LABS: Alanine Aminotransferase 22 U/L (12-78)
[2018-04-19 12:13] LABS: Alkaline Phosphatase 96 U/L (45-117); Total Protein 6.1 g/dL (6.4-8.2)
--- NOTE | 2018-04-19 13:11 | CT ---
EXAM DATE: 04/19/2018 12:25 PM EST AGE/SEX: 77 years / Male INDICATIONS: Right foot pain. Abscess vs. osteomyelitis. CLINICAL DATA: This is the patient's initial encounter. Patient reports that signs and symptoms have been present for 3 days and indicates a pain score of 7/10. MEDICAL/SURGICAL HISTORY: Chronic obstructive pulmonary disease. Diabetes. Cardiovascular disease . PVD. CABG. RADIATION DOSE: 7.29 CTDI (mGy) COMPARISON: No prior exams available for comparison. TECHNIQUE: Multiple contiguous axial images were acquired using a multirow detector CT scanner witho ut contrast. Multiplanar reconstruction was performed in the sagittal and coronal planes. Using auto mated exposure control and adjustment of the mA and/or kV according to patient size, radiation dose w as kept as low as reasonably achievable to obtain optimal diagnostic quality images. DICOM format im age data is available electronically for review and comparison. FINDINGS: CT right foot demonstrate there is extensive air throughout the plantar musculature. The air extends between the intermediate and lateral cuneiform bones. There is air within the sinus Tarsi. There is a ir within the peroneal tendon sheaths. There is air along the dorsal aspect of the foot in the midfoo t level. The soft tissue defect in the lateral aspect of the foot where there is some adjacent edema within th e calcaneus very suspicious if not diagnostic for osteomyelitis. There is dislocation of the second MTP joint. The proximal phalangeal bone is dorsal to the metatarsa l head. There is a prominent os trigonum. Rest of the tendons across the ankle are unremarkable. The tarsomet atarsal joints show good alignment. CONCLUSION: 1. Extensive air throughout the plantar musculature and around the tomasz midfoot possibly originating from a lateral soft tissue ulcer. There is some air within the calcaneus adjacent to the lateral sof t tissue ulcer almost certainly osteomyelitis. 2. Dislocation of the second MTP joint 3. Mild hallux valgus deformity Electronically signed by: Esa Roa MD 04/19/2018 1:10 PM EST
--- NOTE | 2018-04-19 13:13 | CT ---
EXAM DATE: 04/19/2018 12:40 PM EST AGE/SEX: 77 years / Male INDICATIONS: Right foot pain. Osteomyelitis vs. abscess. CLINICAL DATA: This is the patient's initial encounter. Patient reports that signs and symptoms have been present for 1 day and indicates a pain score of 8/10. MEDICAL/SURGICAL HISTORY: Chronic obstructive pulmonary disease. Diabetes. Cardiovascular disease . PVD. CABG. RADIATION DOSE: . CTDI (mGy) ; Reconstructed from previous dataset, no dose COMPARISON: No prior exams available for comparison. TECHNIQUE: Volumetric scanning was performed using a multi-row detector CT scanner during bolus infu roxy of ml nonionic water-soluble contrast as a . The data was post processed with a variety of visu alization algorithms including full volume maximum intensity projection, multi-planar sliding thin sl ab reformation, curved planar reformation, and surface rendering techniques. Using automated exposur e control and adjustment of the mA and/or kV according to patient size, radiation dose was kept as lo w as reasonably achievable to obtain optimal diagnostic quality images. DICOM format image data is a vailable electronically for review and comparison. FINDINGS: Three-dimensional imaging was performed. The second MTP joint dislocation is easily identified. Pleas e see CT foot report for complete characterization CONCLUSION: 1. Three-dimensional images for interpretation and surgical planning Electronically signed by: Esa Roa MD 04/19/2018 1:11 PM EST
--- NOTE | 2018-04-19 17:01 | US ---
EXAM DATE: 04/19/2018 3:07 PM EST AGE/SEX: 77 years / Male INDICATIONS: Right lower extremity non palpable distal pulses with abnormal SCOOBY. Patient apparently had a recent stent in the right leg. CLINICAL DATA: This is the patient's initial encounter. Patient reports that signs and symptoms have been present for 1 day and indicates a pain score of 0/10. MEDICAL/SURGICAL HISTORY: Chronic obstructive pulmonary disease. Diabetes. Myocardial infarct ion. MRSA. Non-healing right heel wound. PVD. Coronary artery stent. CABG. Left lower extremity amputation below the knee. COMPARISON: POI, CTA AORTA W/ RUNOFF, 04/08/2018. . TECHNIQUE: Unilateral lower extremity ultrasound of the arterial vessels was performed. Cardenas-scale, Color Doppler, and Spectral Doppler techniques were utilized. MEASUREMENTS: PEAK SYSTOLIC VELOCITIES: RIGHT: External Iliac Artery:__50 cm/sec Monophasic Common Femoral Artery:__33 cm/sec Monophasic Superficial Femoral Artery:__53 cm/sec Monophasic Profunda Femoris Artery:__34 cm/sec Monophasic Popliteal Artery:__35 cm/sec Monophasic Posterior Tibial Artery:__Occluded Anterior Tibial Artery:__Patent Peroneal Artery:__Patent FINDINGS: Right Lower Extremity: Extensive atherosclerotic plaque throughout the right common and proximal sup erficial femoral arteries. Diffusely decreased velocities throughout the visualized portions of the r ight lower extremity arteries. Other: None. CONCLUSION: 1. Findings most consistent with hemodynamically significant inflow stenosis which corresponds to ex tensive calcified plaque in the right common femoral artery noted on recent CTA exam. Electronically signed by: Irineo Marmolejo MD 04/19/2018 5:00 PM EST
[2018-04-19] MEDS: Insulin Detemir Inj 1,000 UNIT/10 ML Vial SQ SCH (20:57)
--- NOTE | 2018-04-19 21:42 | P.CONPOD ---
History of Present Illness Service: Podiatry Consult date: 04/19/18 Reason for Consult: Right foot/heel gangrene Primary Care Provider: UNKNOWN Chief Complaint: Chronic worsening R heel wound History of Present Illness: Patient says Right heel ulcer began at correction and has worsened lately. He says 4 months duration. he is caregiver for his , who is blind. He says he is ready to give up now and knows it is bad. Review of Systems All other systems reviewed negative except as stated in HPI PMFSH - History History Provided By: Patient - Medical History Medical History: Medical History (Last Reviewed 04/19/18 @ 10:42 by Yandy Vidal) COPD (chronic obstructive pulmonary disease) Depression Diabetes Diabetic foot infection Heart attack MRSA (methicillin resistant Staphylococcus aureus) infection Non-healing wound of right heel PVD (peripheral vascular disease) - Surgical History Surgical History: Surgical History (Last Reviewed 04/19/18 @ 10:42 by Yandy Vidal) Amputation of left lower extremity below knee H/O heart artery stent Hx of CABG - Tobacco History Second Hand Smoke Exposure: No Tobacco Use In Past 30 Days: No Smoking Status: Former smoker - Alcohol History How Often Do You Have a Drink Containing Alcohol: Never - Substance Use History Substance History: No History of Abuse - Travel History Recent Travel in the [place] Within the Last 8 Weeks: No Recent Travel Out of the Country Within the Last 8 Weeks: No - Immunization History Tetanus Immunization: Unsure Hx Influenza Vaccine This Season: Yes Medications and Allergies Active Medications: Active Medications Acetaminophen (Tylenol) 650 mg PO Q4H PRN PRN Reason: Temp > 100.4 OR PAIN 1-4 Last Admin: 04/18/18 20:14 Dose: 650 mg Hydrocodone Bitart/Acetaminophen ([place] 5/325) 1 tab PO Q4H PRN PRN Reason: PAIN 5-10 Last Admin: 04/19/18 21:10 Dose: 1 tab Al Hydroxide/Mg Hydroxide (Milk Of Magnesia Liq) 30 ml PO Q12H PRN PRN Reason: Mild Constipation Amlodipine Besylate (Norvasc) 5 mg PO DAILY [facility] Last Admin: 04/19/18 08:40 Dose: 5 mg Aspirin (Aspirin) 325 mg PO DAILY [facility] Last Admin: 04/19/18 11:18 Dose: 325 mg Atorvastatin Calcium (Lipitor) 40 mg PO HS [facility] Last Admin: 04/19/18 20:57 Dose: 40 mg Bisacodyl (Dulcolax Supp) 10 mg RECTAL DAILY PRN PRN Reason: SEVERE CONSITIPATION Clopidogrel Bisulfate (Plavix) 75 mg PO DAILY [facility] Last Admin: 04/19/18 08:39 Dose: 75 mg Dextrose (D50w Vial) 50 ml IV.PUSH UNSCH PRN PRN Reason: PER HYPOGLYCEMIA PROTOCOL Fluoxetine HCl (Prozac) 10 mg PO BID [facility] Last Admin: 04/19/18 20:56 Dose: 10 mg Gabapentin (Neurontin) 300 mg PO BID [facility] Last Admin: 04/19/18 20:57 Dose: 300 mg Glucagon (Glucagon Inj) 1 mg OTHER PRN PRN PRN Reason: for Hypoglycemia Protocol Guaifenesin (Robitussin Liq) 600 mg PO BID PRN PRN Reason: COUGH Last Admin: 04/19/18 21:09 Dose: 600 mg Heparin Sodium (Porcine) (Heparin Inj) 5,000 units SQ Q12HR [facility] Last Admin: 04/19/18 20:59 Dose: 5,000 units Sodium Chloride (Ns Inj) 1,000 mls @ 100 mls/hr IV.CONT .Q10H [facility] Last Admin: 04/19/18 16:22 Dose: Not Given Vancomycin HCl 1,500 mg/ (Sodium Chloride) 515 mls @ 250 mls/hr IV.SIG Q18H [facility] Last Infusion: 04/19/18 21:27 Dose: Infused Piperacillin/Tazobactam/Dextrose (Zosyn 3.375 Gm Premix) 50 mls @ 100 mls/hr IV.SIG Q6H [facility] Last Infusion: 04/19/18 19:25 Dose: Infused Sodium Chloride (Ns Inj) 1,000 mls @ 100 mls/hr IV.CONT .Q10H [facility] Last Admin: 04/19/18 18:50 Dose: 100 mls/hr Insulin Aspart (Novolog Insulin [facility] Sugar Inj) 0 unit SQ [facility]; Protocol Last Admin: 04/19/18 20:58 Dose: 100 unit Insulin Detemir (Levemir Inj) [address] [facility] Last Admin: 04/19/18 20:57 Dose: 10 unit Insulin Human Isoph/Insulin Regular (Novolin 70/30 Inj) 25 units SQ QPM [facility] Insulin Human Isoph/Insulin Regular (Novolin 70/30 Inj) 30 units SQ DAILY [facility] Last Admin: 04/19/18 13:14 Dose: Not Given Lactulose (Lactulose Liq) 30 ml PO DAILY PRN PRN Reason: SEVERE CONSITIPATION Miscellaneous Information ([facility] Ordered Lab Info) 1 each OTHER ONCE ONE Stop: 04/20/18 11:46 Ondansetron HCl (Zofran Inj) 4 mg IV.PUSH Q6H PRN PRN Reason: NAUSEA OR VOMITING Pharmacy Profile Note (Vancomycin Consult Pharmacy) 1 each OTHER UNSCH PRN PRN Reason: Pharmacy to dose Senna/Docusate Sodium (Genia-Colace) 1 tab PO BID [facility] Last Admin: 04/19/18 20:58 Dose: 1 tab Sennosides (Senokot) 17.2 mg PO Q12H PRN PRN Reason: Moderate Constipation Sotalol HCl (Betapace) 80 mg PO BID [facility] Last Admin: 04/19/18 20:58 Dose: 80 mg Allergies Allergy/AdvReac Type Severity Reaction Status Date / Time No Known Allergies Allergy Verified 04/18/18 04:40 Home Medications Medication Instructions Recorded Confirmed Type aspirin 325 mg PO DAILY 04/18/18 04/18/18 History clopidogrel [Plavix] 75 mg PO DAILY 04/18/18 04/18/18 History fluoxetine [Prozac] 10 mg PO BID 04/18/18 04/18/18 History gabapentin 300 mg PO BID 04/18/18 04/18/18 History insulin NPH and regular human 25 unit SUBCUT QPM 04/18/18 04/18/18 History [Humulin 70/30 U-100 Insulin] insulin NPH and regular human 30 unit SUBCUT QAM 04/18/18 04/18/18 History [Humulin 70/30 U-100 Insulin] losartan 100 mg PO DAILY 04/18/18 04/18/18 History oxycodone-acetaminophen [Percocet] 1 tab PO Q4H PRN 04/18/18 04/18/18 History simvastatin 40 mg PO QPM 04/18/18 04/18/18 History sotalol [Sotalol AF] 80 mg PO Q12H 04/18/18 04/18/18 History temazepam [Restoril] 15 mg PO HS PRN 11/18/18 11/18/18 History Physical Exam Vital signs: Vital Signs 04/19/18 00:00 04/19/18 04:00 04/19/18 08:00 Temperature 97.8 F 98 F 97.7 F Pulse Rate 61 60 60 Respiratory Rate 16 16 Blood Pressure 100/74 103/53 L 143/66 H Pulse Oximetry 92 L 92 L 93 L 04/19/18 12:00 04/19/18 16:00 Temperature 97.7 F 98.4 F Pulse Rate 60 70 Respiratory Rate 18 18 Blood Pressure 125/60 169/61 H Pulse Oximetry 95 97 Intake & Output 04/19/18 04/19/18 04/20/18 06:59 18:59 06:59 Intake Total 2810 / 2810 1530 / 1530 600 / 600 Output Total 400 / 400 1400 / 1400 Balance 2410 / 2410 130 / 130 600 / 600 Weight 108.8 kg Intake: IV 2450 / 2450 1050 / 1050 600 / 600 NS Inj 1,000 ML @ 100 mls/hr IV 1750 / 1750 1000 / 1000 .CONT .Q10H [facility] Rx#:[id number] Zosyn 3.375 GM Premix 50 ML @ 150 / 150 50 / 50 50 / 50 100 mls/hr IV.SIG Q6H [facility] Rx#: [id number] Vancomycin Inj 1,500 MG In NS 550 / 550 550 / 550 Inj 500 ML @ 250 mls/hr IV.SIG Q18H [facility] Rx#:[id number] Oral 360 / 360 480 / 480 Output: Urine 400 / 400 1400 / 1400 Other: # Bowel Movements 1 1 Narrative: Left BKA Right posterior and plantar heel with large boggy eschar, ++ malodor, Localized erythema up to midfoot and ankle surrounding tissue. Results - Labs CBC & Chem 7: 04/19/18 10:33 04/19/18 10:33 Laboratory Results - last 24 hr 04/19/18 04/19/18 04/19/18 09:54 10:33 10:33 WBC 21.5 H RBC 3.30 L Hgb 9.5 L Hct 29.4 L MCV 89.1 MCH 28.8 MCHC 32.3 RDW 15.0 Plt Count 257 MPV 7.8 Neut % (Auto) 90.6 H Lymph % (Auto) 2.7 L [place] % (Auto) 6.6 Eos % (Auto) 0.1 Baso % (Auto) 0.0 Neut # (Auto) 19.5 H Lymph # (Auto) 0.6 L [place] # (Auto) 1.4 H Eos # (Auto) 0.0 Baso # (Auto) 0.0 WBC Differential . Differential Comment Auto diff final Sodium 132 L Potassium 3.8 Chloride 96 L D Carbon Dioxide 29.5 Anion Gap 7 BUN 25 H Creatinine 0.98 Estimated GFR 74 L POC Glucose 174 H Random Glucose 177 H Calcium 7.7 L Magnesium 1.8 Total Bilirubin 0.7 AST 38 H ALT 22 Alkaline Phosphatase 96 Total Protein 6.1 L D Albumin 1.6 L 04/19/18 04/19/18 18:14 19:36 WBC RBC Hgb Hct MCV MCH MCHC RDW Plt Count MPV Neut % (Auto) Lymph % (Auto) [place] % (Auto) Eos % (Auto) Baso % (Auto) Neut # (Auto) Lymph # (Auto) [place] # (Auto) Eos # (Auto) Baso # (Auto) WBC Differential Differential Comment Sodium Potassium Chloride Carbon Dioxide Anion Gap BUN Creatinine Estimated GFR POC Glucose 252 H 236 H Random Glucose Calcium Magnesium Total Bilirubin AST ALT Alkaline Phosphatase Total Protein Albumin Microbiology 04/18/18 05:00 Wound - Foot Gram Stain - Final 04/18/18 05:00 Wound - Foot Wound Culture - Preliminary gram negative rods 04/18/18 04:30 Blood - Peripheral Aerobic Blood Culture - Preliminary No growth in 1 day 04/18/18 04:30 Blood - Peripheral Anaerobic Blood Culture - Preliminary No growth in 1 day 04/18/18 04:50 Blood - Peripheral Aerobic Blood Culture - Preliminary No growth in 1 day 04/18/18 04:50 Blood - Peripheral Anaerobic Blood Culture - Preliminary No growth in 1 day - Imaging Impressions Extremity Arterial Study 04/18/18 00:00 CONCLUSION: 1. Severe reduction of the SCOOBY on the right. 3D Reconstruction 04/19/18 00:00 CONCLUSION: 1. Three-dimensional images for interpretation and surgical planning Arterial Ultrasound 04/19/18 00:00 CONCLUSION: 1. Findings most consistent with hemodynamically significant inflow stenosis which corresponds to extensive calcified plaque in the right common femoral artery noted on recent CTA exam. Foot CT 04/19/18 00:00 CONCLUSION: 1. Extensive air throughout the plantar musculature and around the tomasz midfoot possibly originating from a lateral soft tissue ulcer. There is some air within the calcaneus adjacent to the lateral soft tissue ulcer almost certainly osteomyelitis. 2. Dislocation of the second MTP joint 3. Mild hallux valgus deformity Assessment and Plan - Assessment (1) Decubitus ulcer of right heel, stage 4 Code(s): L89.614 - Pressure ulcer of right heel, stage 4 Status: Acute (2) Gangrene of right foot Code(s): I96 - Gangrene, not elsewhere classified Status: Acute - Plan Strongly recommend BKA right side. Discussed with patient that he is caregiver for his and should discuss his options with her so he does not feel like he is making a rash decision not to treat. He says he does not want to go out like this without his feet and he has lived a good life. I discussed with him that he stated earlier to vascular service his desire was for all limb salvage options, and that did not sound like someone who was ready to give up yet. I discussed with patient there are no limb salvage options available at the level of the foot and that the infection would eventually take his life. Patient understood. Podiatry signing off.
[2018-04-20] MEDS: Piperacil/Tazo 3.375 GM Premix 50 ML IV.SIG SCH ×4 (01:26→18:08)
[2018-04-20] MEDS: Sod Chloride 0.9% Inj 1,000 ML IV.CONT SCH ×4 (05:08→17:05)
[2018-04-20] MEDS ORDERED: Sodium Chloride 0.9% 2 ML Flush PRN IV.FLUSH (07:02)
[2018-04-20 07:43] LABS: Hematocrit 29.6 % (39.0-51.0); Hemoglobin 9.9 gm/dL (13.0-17.0); Mean Corpuscular HGB Conc 33.4 % (32.0-36.0); Mean Corpuscular Hemoglobin 29.3 pg (27.0-34.0); Mean Corpuscular Volume 87.9 fL (80.0-100.0); Red Blood Count 3.37 mil/mm3 (4.50-5.90); Red Cell Distribution Width 15.2 % (11.6-17.2); White Blood Count 23.8 th/mm3 (4.0-11.0)
[2018-04-20 07:44] LABS: Baso % (Auto) 0.1 % (0.0-2.0); Eos % (Auto) 0.1 % (0.0-4.0); Lymph # (Auto) 0.8 th/mm3 (1.0-4.8); Lymph % (Auto) 3.3 % (9.0-44.0); Mean Platelet Volume 7.7 fL (7.0-11.0); Mono # (Auto) 1.5 th/mm3 (0.0-0.9); Mono % (Auto) 6.1 % (0.0-8.0); Neut # (Auto) 21.5 th/mm3 (1.8-7.7); Neut % (Auto) 90.4 % (16.0-70.0); Platelet Count 289 th/mm3 (150-450)
[2018-04-20 07:58] LABS: Anion Gap 6 meq/L (5-15); Blood Urea Nitrogen 18 mg/dL (7-18); Calcium 7.6 mg/dL (8.5-10.1); Carbon Dioxide 29.9 meq/L (21.0-32.0); Chloride 96 meq/L (98-107); Glomerular Filtration Rate Greater Than 89 mL/min (>89); Glucose,Random 172 mg/dL (74-106); Potassium 3.7 meq/L (3.5-5.1); Sodium 132 meq/L (136-145)
[2018-04-20] MEDS: Insulin NovoLOG Aspart Correctional Sugar Inj SQ SCH ×4 (08:39→21:20)
[2018-04-20] MEDS: Senna/Docusate Sodium 8.6/50 MG Tablet PO SCH ×2 (08:40→21:20)
[2018-04-20] MEDS: Gabapentin 300 MG Capsule PO SCH ×2 (08:40→21:19)
[2018-04-20] MEDS: FLUoxetine 10 MG Capsule PO SCH ×2 (08:40→21:21)
[2018-04-20] MEDS: Aspirin 325 MG Tablet PO SCH (08:40)
[2018-04-20] MEDS: amLODIPine 5 MG Tablet PO SCH (08:40)
[2018-04-20] MEDS: Sodium Chloride 0.9% 2 ML Flush BID IV.FLUSH SCH ×2 (08:41→21:22)
[2018-04-20] MEDS: Heparin - SQ 10,000 UNITS/ML Vial SQ SCH ×2 (08:41→21:20)
--- NOTE | 2018-04-20 10:37 | P.PNIM ---
Subjective Interval history: f/u; right foot infection in no acute distress. pain seems to be fairly controlled. T max 101.3. Physical Exam Vital signs: Vital Signs 04/19/18 12:00 04/19/18 16:00 04/19/18 20:00 Temperature 97.7 F 98.4 F 101.3 F H Pulse Rate 60 70 92 H Respiratory Rate 18 18 18 Blood Pressure 125/60 169/61 H 140/58 L Pulse Oximetry 95 97 93 L 04/20/18 00:00 04/20/18 04:00 04/20/18 08:00 Temperature 97.9 F 98.3 F 98.1 F Pulse Rate 73 67 66 Respiratory Rate 19 18 20 Blood Pressure 144/68 H 134/65 143/68 H Pulse Oximetry 94 L 93 L 91 L Intake & Output 04/19/18 04/20/18 04/20/18 18:59 06:59 18:59 Intake Total 1530 / 1530 2160 / 2160 Output Total 1400 / 1400 Balance 130 / 130 2160 / 2160 Weight 110.7 kg Intake: IV 1050 / 1050 1710 / 1710 NS Inj 1,000 ML @ 100 mls/hr IV 1000 / 1000 1000 / 1000 .CONT .Q10H [facility] Rx#:[id number] Zosyn 3.375 GM Premix 50 ML @ 50 / 50 160 / 160 100 mls/hr IV.SIG Q6H [facility] Rx#: [id number] Vancomycin Inj 1,500 MG In NS 550 / 550 Inj 500 ML @ 250 mls/hr IV.SIG Q18H [facility] Rx#:[id number] Oral 480 / 480 300 / 300 Oral Supplement 150 / 150 Output: Urine 1400 / 1400 Other: Date of Last Bowel Movement 04/20/18 # Bowel Movements 1 - Constitutional no acute distress - Routine Respiratory Exam Present: CTA bilaterally - Routine Cardiovascular Exam Present: RRR - Routine Abdominal Exam Present: soft - Routine Extremities Exam Comments: gangrene of the right heel. - Routine Neurological Exam Present: alert, oriented X3 Results - Labs CBC & Chem 7: 04/20/18 06:37 04/20/18 06:37 Laboratory Results - last 24 hr 04/19/18 04/19/18 04/19/18 10:33 10:33 18:14 WBC 21.5 H RBC 3.30 L Hgb 9.5 L Hct 29.4 L MCV 89.1 MCH 28.8 MCHC 32.3 RDW 15.0 Plt Count 257 MPV 7.8 Neut % (Auto) 90.6 H Lymph % (Auto) 2.7 L [place] % (Auto) 6.6 Eos % (Auto) 0.1 Baso % (Auto) 0.0 Neut # (Auto) 19.5 H Lymph # (Auto) 0.6 L [place] # (Auto) 1.4 H Eos # (Auto) 0.0 Baso # (Auto) 0.0 WBC Differential . Differential Comment Auto diff final Sodium 132 L Potassium 3.8 Chloride 96 L D Carbon Dioxide 29.5 Anion Gap 7 BUN 25 H Creatinine 0.98 Estimated GFR 74 L POC Glucose 252 H Random Glucose 177 H Calcium 7.7 L Magnesium 1.8 Total Bilirubin 0.7 AST 38 H ALT 22 Alkaline Phosphatase 96 Total Protein 6.1 L D Albumin 1.6 L 04/19/18 04/20/18 04/20/18 19:36 06:37 06:37 WBC 23.8 H RBC 3.37 L Hgb 9.9 L Hct 29.6 L MCV 87.9 MCH 29.3 MCHC 33.4 RDW 15.2 Plt Count 289 MPV 7.7 Neut % (Auto) 90.4 H Lymph % (Auto) 3.3 L [place] % (Auto) 6.1 Eos % (Auto) 0.1 Baso % (Auto) 0.1 Neut # (Auto) 21.5 H Lymph # (Auto) 0.8 L [place] # (Auto) 1.5 H Eos # (Auto) 0.0 Baso # (Auto) 0.0 WBC Differential . Differential Comment Auto diff final Sodium 132 L Potassium 3.7 Chloride 96 L Carbon Dioxide 29.9 Anion Gap 6 BUN 18 Creatinine 0.80 Estimated GFR Greater than 89 POC Glucose 236 H Random Glucose 172 H Calcium 7.6 L Magnesium Total Bilirubin AST ALT Alkaline Phosphatase Total Protein Albumin 04/20/18 08:38 WBC RBC Hgb Hct MCV MCH MCHC RDW Plt Count MPV Neut % (Auto) Lymph % (Auto) [place] % (Auto) Eos % (Auto) Baso % (Auto) Neut # (Auto) Lymph # (Auto) [place] # (Auto) Eos # (Auto) Baso # (Auto) WBC Differential Differential Comment Sodium Potassium Chloride Carbon Dioxide Anion Gap BUN Creatinine Estimated GFR POC Glucose 179 H Random Glucose Calcium Magnesium Total Bilirubin AST ALT Alkaline Phosphatase Total Protein Albumin Microbiology 04/18/18 04:30 Blood - Peripheral Aerobic Blood Culture - Preliminary No growth in 1 day 04/18/18 04:30 Blood - Peripheral Anaerobic Blood Culture - Preliminary gram positive cocci 04/18/18 05:00 Wound - Foot Gram Stain - Final 04/18/18 05:00 Wound - Foot Wound Culture - Preliminary gram negative rods 04/18/18 04:50 Blood - Peripheral Aerobic Blood Culture - Preliminary No growth in 1 day 04/18/18 04:50 Blood - Peripheral Anaerobic Blood Culture - Preliminary No growth in 1 day - Imaging Impressions 3D Reconstruction 04/19/18 00:00 CONCLUSION: 1. Three-dimensional images for interpretation and surgical planning Arterial Ultrasound 04/19/18 00:00 CONCLUSION: 1. Findings most consistent with hemodynamically significant inflow stenosis which corresponds to extensive calcified plaque in the right common femoral artery noted on recent CTA exam. Foot CT 04/19/18 00:00 CONCLUSION: 1. Extensive air throughout the plantar musculature and around the tomasz midfoot possibly originating from a lateral soft tissue ulcer. There is some air within the calcaneus adjacent to the lateral soft tissue ulcer almost certainly osteomyelitis. 2. Dislocation of the second MTP joint 3. Mild hallux valgus deformity Assessment and Plan - Plan 1. Severe Sepsis secondary to right diabetic foot ulcer CT of the right foot with possible osteomyelitis and dislocation of the second MTP joint. podiatry consult appreciated and recommended BKA - however the patient declined. continue with IV antibiotics- will follow the cultures- continue pain control. ID following. 2- PVD arterial sonogram with significant stenosis of the right common femoral artery on aspirin, plavis and statin- vascular surgery following. 3. renal insufficiency with unknown duration continue to monitor the renal function. 4. Poorly controlled diabetes on subq levemir.Continue low-dose insulin sliding scale. We will adjust his diabetes regimen as needed. 5. hyponatremia; due to hyperglycemia; improved-will monitor 5.DVT prophylaxis;subq Heparin Discharge Planning: w/u in progress.
[2018-04-20] MEDS ORDERED: Pharmacy Ordered Lab Info OTHER ONE (11:45)
--- NOTE | 2018-04-20 12:24 | P.PNVS ---
Subjective Subjective/Hospital Course: Doing well this morning, his right lower extremity pain is under control. Objective Vital Signs / I&O: Vital Signs 04/19/18 16:00 04/19/18 20:00 04/20/18 00:00 Temperature 98.4 F 101.3 F H 97.9 F Pulse Rate 70 92 H 73 Respiratory Rate 18 18 19 Blood Pressure 169/61 H 140/58 L 144/68 H Pulse Oximetry 97 93 L 94 L 04/20/18 04:00 04/20/18 08:00 04/20/18 11:23 Temperature 98.3 F 98.1 F Pulse Rate 67 66 Respiratory Rate 18 20 Blood Pressure 134/65 143/68 H Pulse Oximetry 93 L 91 L 92 L Intake & Output 04/19/18 04/20/18 04/20/18 18:59 06:59 18:59 Intake Total 1530 / 1530 2160 / 2160 Output Total 1400 / 1400 Balance 130 / 130 2160 / 2160 Weight 110.7 kg Intake: IV 1050 / 1050 1710 / 1710 NS Inj 1,000 ML @ 100 mls/hr IV 1000 / 1000 1000 / 1000 .CONT .Q10H [facility] Rx#:[id number] Zosyn 3.375 GM Premix 50 ML @ 50 / 50 160 / 160 100 mls/hr IV.SIG Q6H [facility] Rx#: [id number] Vancomycin Inj 1,500 MG In NS 550 / 550 Inj 500 ML @ 250 mls/hr IV.SIG Q18H [facility] Rx#:[id number] Oral 480 / 480 300 / 300 Oral Supplement 150 / 150 Output: Urine 1400 / 1400 Other: Date of Last Bowel Movement 04/20/18 # Bowel Movements 1 Physical Exam: Extensive foot gangrene of the right ankle with foul-smelling. Monophasic right pedal signals Laboratory Results - last 24 hr 04/19/18 04/19/18 04/20/18 18:14 19:36 06:37 WBC 23.8 H RBC 3.37 L Hgb 9.9 L Hct 29.6 L MCV 87.9 MCH 29.3 MCHC 33.4 RDW 15.2 Plt Count 289 MPV 7.7 Neut % (Auto) 90.4 H Lymph % (Auto) 3.3 L [place] % (Auto) 6.1 Eos % (Auto) 0.1 Baso % (Auto) 0.1 Neut # (Auto) 21.5 H Lymph # (Auto) 0.8 L [place] # (Auto) 1.5 H Eos # (Auto) 0.0 Baso # (Auto) 0.0 WBC Differential . Differential Comment Auto diff final Sodium Potassium Chloride Carbon Dioxide Anion Gap BUN Creatinine Estimated GFR POC Glucose 252 H 236 H Random Glucose Calcium 04/20/18 04/20/18 06:37 08:38 WBC RBC Hgb Hct MCV MCH MCHC RDW Plt Count MPV Neut % (Auto) Lymph % (Auto) [place] % (Auto) Eos % (Auto) Baso % (Auto) Neut # (Auto) Lymph # (Auto) [place] # (Auto) Eos # (Auto) Baso # (Auto) WBC Differential Differential Comment Sodium 132 L Potassium 3.7 Chloride 96 L Carbon Dioxide 29.9 Anion Gap 6 BUN 18 Creatinine 0.80 Estimated GFR Greater than 89 POC Glucose 179 H Random Glucose 172 H Calcium 7.6 L Microbiology 04/18/18 04:30 Aerobic Blood Culture - Preliminary Blood - Peripheral No growth in 2 days Anaerobic Blood Culture - Preliminary gram positive cocci 04/18/18 05:00 Gram Stain - Final Wound - Foot Wound Culture - Preliminary Enterobacter cloacae S. aureus MRSA 04/18/18 04:50 Aerobic Blood Culture - Preliminary Blood - Peripheral No growth in 2 days Anaerobic Blood Culture - Preliminary No growth in 2 days Impressions Extremity Arterial Study 04/18/18 00:00 CONCLUSION: 1. Severe reduction of the SCOOBY on the right. Foot X-Ray 04/18/18 00:00 CONCLUSION: Soft tissue air overlying the plantar aspect of the foot with no osseous abnormality identified to suggest osteomyelitis within this region. No radiopaque foreign body. 3D Reconstruction 04/19/18 00:00 CONCLUSION: 1. Three-dimensional images for interpretation and surgical planning Arterial Ultrasound 04/19/18 00:00 CONCLUSION: 1. Findings most consistent with hemodynamically significant inflow stenosis which corresponds to extensive calcified plaque in the right common femoral artery noted on recent CTA exam. Foot CT 04/19/18 00:00 CONCLUSION: 1. Extensive air throughout the plantar musculature and around the tomasz midfoot possibly originating from a lateral soft tissue ulcer. There is some air within the calcaneus adjacent to the lateral soft tissue ulcer almost certainly osteomyelitis. 2. Dislocation of the second MTP joint 3. Mild hallux valgus deformity Assessment and Plan - Plan Extensive right foot wet gangrene I discussed the case with Dr. Harden and the right lower extremity is deemed nonsalvageable. The patient will need a right below-knee amputation. I had a long discussion with the patient and his daughter Fany. The patient does not want an amputation and he would like to proceed with palliative care/ comfort care measures. I advised the patient and his daughter to further discuss their options and come up with the final decision. We will consult palliative care and will continue to follow.
[2018-04-20] MEDS: Vancomycin Inj 1,500 MG in Sodium Chlor 0.9% Inj 500 ML IV.SIG SCH (12:56)
--- NOTE | 2018-04-20 14:22 | P.PNID ---
Subjective Remarks: Patient is a 77-year-old male, brought into the hospital for further evaluation of worsening right pain. He also mentioned that he has been having cough for about a week to 2 weeks with some shortness of breath. According to the the patient had problem with his left foot when they were still living in [place], and this was around October 2017. He subsequently underwent left AKA and went to the group home and apparently during that time that he was sick from the left foot he started developing a decubitus on his right heel. It had progressively worsened, and they moved here in the [place] area in March and establish with a primary care physician. He was referred to a wound care center in [facility] and has been going there for the last 6 weeks. There was a home health nurse that does the dressing changes on his right foot. The really could not tell me any details about how the foot looks because she stated that she is legally blind. Patient stated that it has been having some smell to it over the last 2 weeks, but he is not sure whether it was this color for that period of time. He was last seen by the wound care doctor about a week or so ago. Patient has not been on any antibiotics recently. According to the , he was also being evaluated by a vascular surgeon and has been seen twice. The pain has been worsening, so the patient was brought to the hospital for further evaluation and treatment. He has not had any fevers or chills at home. The home health nurses checks his vital signs. Since admission his temperature has been about 100. His WBC is elevated at 26,000. Plain film of his right foot did not show any evidence of osteomyelitis. He is currently on vancomycin and Zosyn. Infectious disease consultation has been requested to assist with evaluation and treatment. Notes reviewed D/W Dr Tez Alvares 101.3 last night Vascular and podiatry notes reviewed - recommending amputation Patient does not want any amputation and wants comfort measures Palliative medicine to evaluate One BC with GPC Wound C/S Enterobacter and MRSA Antibiotics: Vancomycin Zosyn Lines: PIV Past Medical History: COPD (chronic obstructive pulmonary disease) Depression Diabetes Diabetic foot infection Heart attack MRSA (methicillin resistant Staphylococcus aureus) infection Non-healing wound of right heel PVD (peripheral vascular disease Amputation of left lower extremity below knee H/O heart artery stent Hx of CABG Spinal stimulator 2012 Allergies/Adverse Reactions: Allergies No Known Allergies Allergy (Verified 04/18/18 04:40) pollen Objective Vital Signs 04/19/18 16:00 04/19/18 20:00 04/20/18 00:00 Temperature 98.4 F 101.3 F H 97.9 F Pulse Rate 70 92 H 73 Respiratory Rate 18 18 19 Blood Pressure 169/61 H 140/58 L 144/68 H Pulse Oximetry 97 93 L 94 L 04/20/18 04:00 04/20/18 08:00 04/20/18 11:23 Temperature 98.3 F 98.1 F Pulse Rate 67 66 Respiratory Rate 18 20 Blood Pressure 134/65 143/68 H Pulse Oximetry 93 L 91 L 92 L Intake & Output 04/19/18 04/20/18 04/20/18 18:59 06:59 18:59 Intake Total 1530 / 1530 2160 / 2160 Output Total 1400 / 1400 Balance 130 / 130 2160 / 2160 Weight 110.7 kg Intake: IV 1050 / 1050 1710 / 1710 NS Inj 1,000 ML @ 100 mls/hr IV 1000 / 1000 1000 / 1000 .CONT .Q10H MARCY Rx#:[id number] Zosyn 3.375 GM Premix 50 ML @ 50 / 50 160 / 160 100 mls/hr IV.SIG Q6H MARCY Rx#: [id number] Vancomycin Inj 1,500 MG In NS 550 / 550 Inj 500 ML @ 250 mls/hr IV.SIG Q18H MARCY Rx#:[id number] Oral 480 / 480 300 / 300 Oral Supplement 150 / 150 Output: Urine 1400 / 1400 Other: Date of Last Bowel Movement 04/20/18 # Bowel Movements 1 04/18/18 04:30 Blood - Peripheral Aerobic Blood Culture - Preliminary No growth in 2 days 04/18/18 04:30 Blood - Peripheral Anaerobic Blood Culture - Preliminary gram positive cocci 04/18/18 05:00 Wound - Foot Gram Stain - Final 04/18/18 05:00 Wound - Foot Wound Culture - Preliminary Enterobacter cloacae S. aureus MRSA 04/18/18 04:50 Blood - Peripheral Aerobic Blood Culture - Preliminary No growth in 2 days 04/18/18 04:50 Blood - Peripheral Anaerobic Blood Culture - Preliminary No growth in 2 days Lab - Hematology Results 04/19/18 04/20/18 10:33 06:37 WBC 21.5 H 23.8 H RBC 3.30 L 3.37 L Hgb 9.5 L 9.9 L Hct 29.4 L 29.6 L MCV 89.1 87.9 MCH 28.8 29.3 MCHC 32.3 33.4 RDW 15.0 15.2 Plt Count 257 289 MPV 7.8 7.7 Neut % (Auto) 90.6 H 90.4 H Lymph % (Auto) 2.7 L 3.3 L Garden % (Auto) 6.6 6.1 Eos % (Auto) 0.1 0.1 Baso % (Auto) 0.0 0.1 Neut # (Auto) 19.5 H 21.5 H Lymph # (Auto) 0.6 L 0.8 L Garden # (Auto) 1.4 H 1.5 H Eos # (Auto) 0.0 0.0 Baso # (Auto) 0.0 0.0 WBC Differential . . Differential Comment Auto diff final Auto diff final Lab - Chemistry Results 04/18/18 04/18/18 04/19/18 16:47 20:22 09:54 Sodium Potassium Chloride Carbon Dioxide Anion Gap BUN Creatinine Estimated GFR POC Glucose 264 H 305 H 174 H Random Glucose Calcium Magnesium Total Bilirubin AST ALT Alkaline Phosphatase Total Protein Albumin 04/19/18 04/19/18 04/19/18 10:33 18:14 19:36 Sodium 132 L Potassium 3.8 Chloride 96 L D Carbon Dioxide 29.5 Anion Gap 7 BUN 25 H Creatinine 0.98 Estimated GFR 74 L POC Glucose 252 H 236 H Random Glucose 177 H Calcium 7.7 L Magnesium 1.8 Total Bilirubin 0.7 AST 38 H ALT 22 Alkaline Phosphatase 96 Total Protein 6.1 L D Albumin 1.6 L 04/20/18 04/20/18 04/20/18 06:37 08:38 12:43 Sodium 132 L Potassium 3.7 Chloride 96 L Carbon Dioxide 29.9 Anion Gap 6 BUN 18 Creatinine 0.80 Estimated GFR Greater than 89 POC Glucose 179 H 211 H Random Glucose 172 H Calcium 7.6 L Magnesium Total Bilirubin AST ALT Alkaline Phosphatase Total Protein Albumin Imaging: ITS Impressions Extremity Arterial Study 04/18/18 00:00 CONCLUSION: 1. Severe reduction of the SCOOBY on the right. Foot X-Ray 04/18/18 00:00 CONCLUSION: Soft tissue air overlying the plantar aspect of the foot with no osseous abnormality identified to suggest osteomyelitis within this region. No radiopaque foreign body. Chest X-Ray 04/18/18 04:48 CONCLUSION: Negative examination. Numerous median sternotomy wires. Lungs are clear. 3D Reconstruction 04/19/18 00:00 CONCLUSION: 1. Three-dimensional images for interpretation and surgical planning Arterial Ultrasound 04/19/18 00:00 CONCLUSION: 1. Findings most consistent with hemodynamically significant inflow stenosis which corresponds to extensive calcified plaque in the right common femoral artery noted on recent CTA exam. Foot CT 04/19/18 00:00 CONCLUSION: 1. Extensive air throughout the plantar musculature and around the tomasz midfoot possibly originating from a lateral soft tissue ulcer. There is some air within the calcaneus adjacent to the lateral soft tissue ulcer almost certainly osteomyelitis. 2. Dislocation of the second MTP joint 3. Mild hallux valgus deformity Physical Exam: GENERAL: awake and alert, not in respiratory distress SKIN: Warm and dry. No generalized rash, no ecchymoses and no evidence of embolic lesions. EYES: Alto conjunctiva. No petechia or hemorrhage. No scleral icterus. No injection or drainage. EARS, NOSE AND THROAT: Nose without bleeding or purulent nasal discharge. No sinus tenderness. Mucous membranes pink and moist. No oral lesions noted. No exudate. No oral thrush. NECK: Trachea midline. Supple and not tender, no meningeal signs CARDIOVASCULAR: Regular rate and rhythm. No murmurs, rubs or gallops heard RESPIRATORY: Clear to auscultation. Breath sounds equal bilaterally. No rales , wheezing or rhonchi ABDOMEN: Soft, non-tender, nondistended. Bowel sounds present and normoactive. No guarding. No rebound. No organomegaly. EXTREMITIES: No clubbing, cyanosis. Well healed L BKA stump. RLE: swelling better, and redness better in his R leg. Dressing in place, (+) foul odor NEUROLOGICAL: Awake and alert. Cranial nerves grossly intact. Motor grossly within normal limits. PSYCHIATRIC: Normal affect, calm and cooperative. LINE: No evidence of infection Assessment and Plan - Plan Impression Possible sepsis due to DFI, has ischemic infected decubitus R heel Wet gangrene, decubitus heel ulcer - osteo on CT PVD DM COPD - C/O SOB, ?exacerbation, CXR clear Renal insufficiency, ?baseline, ?worsened by sepsis Recommendation Continue vancomycin and Zosyn for now Palliative medicine evaluating patient He is refusing amputation and wants comfort measure D/W Dr Reagan
--- NOTE | 2018-04-20 14:33 | P.CONPAL ---
Consult Service: Palliative Care Requesting Physician: Smiley Reagan Reason for Consult: a. To assist with evaluation and management of symptoms including: dyspnea, pain b. To assist medical decision maker(s) with: better understanding of current medical conditions; weighing benefits/burdens of medical treatment options; making medical treatment decisions. Primary Care Provider: UNKNOWN History of Present Illness History of Present Illness: This 77-year-old male presented to the ED on 04/18/18 from home, with reports of pressure ulcer/wound getting worse on his foot. He has known history of hyperlipidemia, hypertension, poorly controlled diabetes, prior left BKA, CAD, CABG. * At ED arrival he was noted with 10 x 7 cm wound to right heel that appeared necrotic, With purulent drainage. He was A and O x2. CXR negative for acute process. Sternotomy wires noted. * Arterial Doppler to right lower extremity completed. 1. Findings most consistent with hemodynamically significant inflow stenosis which corresponds to extensive calcified plaque in the right common femoral artery noted on recent CTA exam. This was discussed with vascular surgery Dr. Calvo. Leukocytosis 26.6. Mild anemia 10.8/32.4. BUN 28/creatinine 1.40. Patient was transferred from [facility] to [facility]. Started on Vanco, Zosyn. Started on IV fluids. Cultures pending. JOSI felt to be secondary to sepsis, infection of diabetic foot ulcer. * ID consulted: Patient reporting problems with LEFT foot first began around October 2017. He underwent LT AKA, was then placed in a nursing facility, and it was during that recovery from the left foot issues that he began to develop issues on the RIGHT heel which progressively worsened. He was referred to wound care center at another facility and had been going there for at least 6 weeks, also with home health doing dressing changes on the right foot. He also apparently been previously seen by vascular surgery x2. ID recommends podiatry evaluation. Continue Vanco, Zosyn. Follow cultures. Adjustments as indicated by ongoing workup, clinical course. * Foot CT completed = 1. Extensive air throughout the plantar musculature and around the tomasz midfoot possibly originating from a lateral soft tissue ulcer. There is some air within the calcaneus adjacent to the lateral soft tissue ulcer almost certainly osteomyelitis. 2. Dislocation of the second MTP joint 3. Mild hallux valgus deformity. ID recommends CT foot with 3D reconstruction , vascular evaluation and podiatry evaluation. * * Vascular surgery evaluation: Patient reportedly underwent right lower extremity angiogram with stent placement several months ago. Has not been ambulating well primarily uses wheelchair. Probable osteomyelitis, MRI pending. Discussed with patient possible may require amputation, patient only interested in limb salvage. Ordered for right lower extremity arterial duplex ; further recommendations following this. Otherwise continue medical management and pain control. * Podiatry evaluation: Strongly recommended BKA right side. Patient endorsing that he does not want to go out without his feet and that he has lived a good life. Podiatry reminded him that his desire was for limb salvage, further explore there are no limb salvage options available at the level of foot and that the infection could eventually take his life. Documented the patient understood. He apparently said that he was ready to give up. * 04/20 having some fevers. 101.3. Blood culture anaerobic positive gram- positive cocci. Wound culture Gram stain with Enterobacter cloacae, staph aureus MRSA. Documented that pain to right lower extremity well controlled. Vascular surgery notes discussion with podiatry regarding lower extremity agrees with nonsalvageable. Would need right BKA. Long discussion with patient and daughter patient does not want amputation requests palliative/ comfort measures. WBC 23.8. H&H 9.9/29.6. BUN /creatinine improved 19/0.80. GFR> 89. Palliative care consulted to assist with clarification of goals of treatment. Patient seen in room no visitors present. He is alert and oriented x3. He is hard of hearing. Explore with him recent trajectory, psychosocial history. He endorses being told surgery was his only option to try to recover and that he is not interested in further surgeries. He requests no heroic measures including no CPR. 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 He indicates he wants this but cannot go home and less hospice provides 24/7 care because his who is blind will be unable to care for him. He also endorses that he does not want to go to a nursing facility. He endorses he has no one to take care of him 24/ 7. Review of hospice care center for symptom management with the possibility of placement if he survives longer term. He indicates he would be open to a care center however he also says he wants to stay in the hospital as long as possible may be until next week. I attempted to explore with him that staying in the hospital would be beneficial if he desire to pursue aggressive measures however may not meet inpatient admission requirements for the hospitalization if he did not wish for further aggressive or invasive measures. He indicates then may be he would wait for hospice and transition out after Thanksgiving or possibly next week. Attempt to explore with him who would be his emergency decision maker he says probably his or his daughter. He then again tells me he wants a DNR. He tells me his pain is not adequately relieved with use of oral regimen he would like better pain relief currently 7 or 8 out of 10 goes down by a point or 2 after oral prn use. Following exam call to daughter and they are together. Explore with them at length my conversation with the patient. Explore with him prognosis and expected trajectory if right lower extremity wound is not treated/amputated. They understand patient will have limited life expectancy. Explore with him hospice care center services for acute symptom management however possible he could require longer term placement. They endorse they do not have ability to care for him at home 22/12 at this time. They are supportive of whatever the patient's wishes are, they indicate that he is been "talking about this for a while now "and that he does not wish to suffer any longer. Daughter details that he has had many years of chronic pain secondary to his RA, and that in the past weeks and months he has had increased pain and very little relief. They are supportive of hospice, comfort oriented goals and DNR status. Family history: Pt daughter indicates pt sister also in poor health though not certain of all medical conditions. Function/Cognitive Trajectory: primarily w/c bound since right BKA this past summer. Prev used a walker. Had rehab course in [facility] following BKA. Family endorses patient generally cognitively sharp prior to admission. Review of Systems Constitutional: Reports anorexia, Reports fatigue, Reports fever(s) Ears, Nose, Mouth, and Throat: Denies mouth pain, Denies sore throat Cardiovascular: Reports leg sores, Reports shortness of breath, Reports shortness of breath with activity, Denies chest pain Respiratory: Reports shortness of breath, Reports shortness of breath with activity, Denies chest congestion, Denies cough Gastrointestinal: Denies abdominal pain, Denies change in stools, Denies difficulty swallowing, Denies nausea, Denies pain with swallowing, Denies vomiting Genitourinary: Denies blood in urine Musculoskeletal: Reports body aches, Reports joint pain, Reports muscle weakness Skin/Breast: Reports non-healing lesions Neurologic: Reports weakness, Denies confusion PMFSH - History History Provided By: Patient - Medical History Medical History: Medical History (Last Reviewed 04/19/18 @ 10:42 by Yandy Vidal) COPD (chronic obstructive pulmonary disease) Depression Diabetes Diabetic foot infection Heart attack MRSA (methicillin resistant Staphylococcus aureus) infection Non-healing wound of right heel PVD (peripheral vascular disease) - Surgical History Surgical History: Surgical History (Last Reviewed 04/19/18 @ 10:42 by Yandy Vidal) Amputation of left lower extremity below knee H/O heart artery stent Hx of CABG - Tobacco History Second Hand Smoke Exposure: No Tobacco Use In Past 30 Days: No Smoking Status: Former smoker - Alcohol History How Often Do You Have a Drink Containing Alcohol: Never - Substance Use History Substance History: No History of Abuse - Travel History Recent Travel in the [place] Within the Last 8 Weeks: No Recent Travel Out of the Country Within the Last 8 Weeks: No - Immunization History Tetanus Immunization: Unsure Hx Influenza Vaccine This Season: Yes Medications and Allergies Active Medications: Active Medications Acetaminophen (Tylenol) 650 mg PO Q4H PRN PRN Reason: Temp > 100.4 OR PAIN 1-4 Last Admin: 04/18/18 20:14 Dose: 650 mg Hydrocodone Bitart/Acetaminophen ([place] 5/325) 1 tab PO Q4H PRN PRN Reason: PAIN 5-10 Last Admin: 04/20/18 12:44 Dose: 1 tab Al Hydroxide/Mg Hydroxide (Milk Of Xander Lisolange) 30 ml PO Q12H PRN PRN Reason: Mild Constipation Amlodipine Besylate (Norvasc) 5 mg PO DAILY [facility] Last Admin: 04/20/18 08:40 Dose: 5 mg Aspirin (Aspirin) 325 mg PO DAILY [facility] Last Admin: 04/20/18 08:40 Dose: 325 mg Atorvastatin Calcium (Lipitor) 40 mg PO HS [facility] Last Admin: 04/19/18 20:57 Dose: 40 mg Bisacodyl (Dulcolax Supp) 10 mg RECTAL DAILY PRN PRN Reason: SEVERE CONSITIPATION Clopidogrel Bisulfate (Plavix) 75 mg PO DAILY [facility] Last Admin: 04/20/18 08:41 Dose: 75 mg Dextrose (D50w Vial) 50 ml IV.PUSH UNSCH PRN PRN Reason: PER HYPOGLYCEMIA PROTOCOL Fluoxetine HCl (Prozac) 10 mg PO BID [facility] Last Admin: 04/20/18 08:40 Dose: 10 mg Gabapentin (Neurontin) 300 mg PO BID [facility] Last Admin: 04/20/18 08:40 Dose: 300 mg Glucagon (Glucagon Inj) 1 mg OTHER PRN PRN PRN Reason: for Hypoglycemia Protocol Guaifenesin (Robitussin Liq) 600 mg PO BID PRN PRN Reason: COUGH Last Admin: 04/19/18 21:09 Dose: 600 mg Heparin Sodium (Porcine) (Heparin Inj) 5,000 units SQ Q12HR [facility] Last Admin: 04/20/18 08:41 Dose: 5,000 units Vancomycin HCl 1,500 mg/ (Sodium Chloride) 515 mls @ 250 mls/hr IV.SIG Q18H [facility] Last Admin: 04/20/18 12:56 Dose: 250 mls/hr Piperacillin/Tazobactam/Dextrose (Zosyn 3.375 Gm Premix) 50 mls @ 100 mls/hr IV.SIG Q6H [facility] Last Admin: 04/20/18 12:56 Dose: 100 mls/hr Sodium Chloride (Ns Inj) 1,000 mls @ 100 mls/hr IV.CONT .Q10H [facility] Last Infusion: 04/20/18 05:15 Dose: Infused Insulin Aspart (Novolog Insulin Correctional Sugar Inj) 0 unit SQ ACHS [facility]; Protocol Last Admin: 04/20/18 13:00 Dose: 3 unit Insulin Detemir (Levemir Inj) 10 unit SQ HS [facility] Last Admin: 04/19/18 20:57 Dose: 10 unit Insulin Human Isoph/Insulin Regular (Novolin 70/30 Inj) 25 units SQ QPM [facility] Insulin Human Isoph/Insulin Regular (Novolin 70/30 Inj) 30 units SQ DAILY [facility] Last Admin: 04/19/18 13:14 Dose: Not Given Lactulose (Lactulose Liq) 30 ml PO DAILY PRN PRN Reason: SEVERE CONSITIPATION Ondansetron HCl (Zofran Inj) 4 mg IV.PUSH Q6H PRN PRN Reason: NAUSEA OR VOMITING Pharmacy Profile Note (Vancomycin Consult Pharmacy) 1 each OTHER UNSCH PRN PRN Reason: Pharmacy to dose Senna/Docusate Sodium (Genia-Colace) 1 tab PO BID [facility] Last Admin: 04/20/18 08:40 Dose: 1 tab Sennosides (Senokot) 17.2 mg PO Q12H PRN PRN Reason: Moderate Constipation Sodium Chloride (Ns Flush) 2 ml IV.FLUSH BID [facility] Last Admin: 04/20/18 08:41 Dose: 2 ml Sodium Chloride (Ns Flush) 2 ml IV.FLUSH PRN PRN PRN Reason: FLUSH AFTER USING IV ACCESS Sotalol HCl (Betapace) 80 mg PO BID [facility] Last Admin: 04/20/18 08:40 Dose: 80 mg Allergies Allergy/AdvReac Type Severity Reaction Status Date / Time No Known Allergies Allergy Verified 04/18/18 04:40 Home Medications Medication Instructions Recorded Confirmed Type aspirin 325 mg PO DAILY 04/18/18 04/18/18 History clopidogrel [Plavix] 75 mg PO DAILY 04/18/18 04/18/18 History fluoxetine [Prozac] 10 mg PO BID 04/18/18 04/18/18 History gabapentin 300 mg PO BID 04/18/18 04/18/18 History insulin NPH and regular human 25 unit SUBCUT QPM 04/18/18 04/18/18 History [Humulin 70/30 U-100 Insulin] insulin NPH and regular human 30 unit SUBCUT QAM 04/18/18 04/18/18 History [Humulin 70/30 U-100 Insulin] losartan 100 mg PO DAILY 04/18/18 04/18/18 History oxycodone-acetaminophen [Percocet] 1 tab PO Q4H PRN 04/18/18 04/18/18 History simvastatin 40 mg PO QPM 04/18/18 04/18/18 History sotalol [Sotalol AF] 80 mg PO Q12H 04/18/18 04/18/18 History temazepam [Restoril] 15 mg PO HS PRN 04/18/18 04/18/18 History Advance Directives Living Will: No Healthcare Surrogate: No Ethical and Legal Issues: Patient is alert and oriented x3. For the most part he is appropriate though at times seems mildly forgetful or with slight confusion of options. Able to make his own decisions though would recommend supported by his and daughter whom he involves. Physical Exam Vital Signs: Vital Signs - 24 hr 04/19/18 16:00 04/19/18 20:00 04/20/18 00:00 Temperature 98.4 F 101.3 F H 97.9 F Pulse Rate 70 92 H 73 Respiratory Rate 18 18 19 Blood Pressure 169/61 H 140/58 L 144/68 H Pulse Oximetry 97 93 L 94 L 04/20/18 04:00 04/20/18 08:00 04/20/18 11:23 Temperature 98.3 F 98.1 F Pulse Rate 67 66 Respiratory Rate 18 20 Blood Pressure 134/65 143/68 H Pulse Oximetry 93 L 91 L 92 L I&O: Intake & Output 04/18/18 04/19/18 04/20/18 04/21/18 06:59 06:59 06:59 06:59 Intake Total 50 / 50 4710 / 4710 3690 / 3690 Output Total 700 / 700 1400 / 1400 Balance 50 / 50 4010 / 4010 2290 / 2290 Weight 108.862 kg 108.8 kg 110.7 kg Physical Exam: CONSTITUTIONAL/GENERAL: This is an adequately nourished patient, alert, appropriate TUBES/LINES/DRAINS:PIV BUE. SKIN: No jaundice, rashes. Ecchymoses on upper extremities. + large black wound rt heel. +erythema spreading up foot/lower leg. Poor cap refill. Not able to palp pedal pulse. Skin otherwise warm/dry . Old healed left BKA HEAD: Atraumatic. Normocephalic. EYES: Pupils equal and round and reactive. Extraocular motions intact. No scleral icterus. No injection or drainage. Fundi not examined. ENT: [facility]. Nose without bleeding or purulent drainage. Throat without visible erythema, exudates, masses, or lesions. NECK: Trachea midline. Supple, nontender. No palpable thyroid enlargement or nodularity. CARDIOVASCULAR: Regular rate and rhythm without murmur . No JVD. + large black wound rt heel. +erythema spreading up foot/lower leg. Poor cap refill. Not able to palp pedal pulse. trace edema to hands. RESPIRATORY/CHEST: Symmetric, unlabored respirations. Mildly tachypneic during exam. Clear to auscultation- decreased air movement. Breath sounds equal bilaterally. No wheezes, rales, or rhonchi. GASTROINTESTINAL: Abdomen soft, round non-tender, nondistended. No palpable masses. No guarding. Bowel sounds present. GENITOURINARY: Without palpable bladder distension. voids to urinal, observe dark yellow urine present MUSCULOSKELETAL: Extremities without clubbing, cyanosis. trace edema to Bilat hands. 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 Right lower extremity with large wound as described under skin. LYMPHATICS: No palpable cervical or supraclavicular adenopathy. NEUROLOGICAL: Awake and alert, oriented x3. Moves all 4 extremities. Motor and sensory grossly within normal limits. Follows commands. Cognitively sharp- though appears slightly forgetful perhaps insight slightly impaired at times. Moves all extremities. PSYCHIATRIC: No obvious anxiety/depression. no apparent hallucinations or other psychotic thought process. Diagnostic Tests Laboratory: Laboratory Results - last 72 hr 04/18/18 04/18/18 04/18/18 04:50 04:50 04:50 CBC w Diff Auto diff final WBC 26.6 H RBC 3.68 L Hgb 10.8 L Hct 32.4 L MCV 88.0 MCH 29.4 MCHC 33.4 RDW 13.9 Plt Count 318 MPV 7.9 Neut % (Auto) 91.6 H Lymph % (Auto) 4.2 L [place] % (Auto) 3.5 Eos % (Auto) 0.0 Baso % (Auto) 0.7 Neut # (Auto) 24.4 H Lymph # (Auto) 1.1 [place] # (Auto) 0.9 Eos # (Auto) 0.0 Baso # (Auto) 0.2 WBC Differential . Differential Comment . ESR Sodium 127 L Potassium 4.2 Chloride 87 L Carbon Dioxide 30.3 Anion Gap 10 BUN 28 H Creatinine 1.40 H Estimated GFR 49 L POC Glucose Random Glucose 180 H Lactic Acid 1.5 Calcium 8.3 L Magnesium Total Bilirubin 1.3 H AST 32 ALT 21 Alkaline Phosphatase 108 C-Reactive Protein Total Protein 7.1 Albumin 2.1 L Lipase 32 L Ur Collection Type Urine Color Urine Clarity Urine pH Ur Specific [place] Urine Protein Urine Glucose (UA) Urine Ketones Urine Occult Blood Urine Nitrate Urine Bilirubin Urine Urobilinogen Ur Leukocyte Esterase Urine RBC Urine WBC Ur Squamous Epith Cells Amorphous Sediment Granular Casts Ur Microscopic Review Urine Collection Time Vancomycin Trough 11/18/18 11/18/18 11/18/18 08:06 11:27 12:45 CBC w Diff WBC RBC Hgb Hct MCV MCH MCHC RDW Plt Count MPV Neut % (Auto) Lymph % (Auto) [place] % (Auto) Eos % (Auto) Baso % (Auto) Neut # (Auto) Lymph # (Auto) [place] # (Auto) Eos # (Auto) Baso # (Auto) WBC Differential Differential Comment ESR 103 H Sodium Potassium Chloride Carbon Dioxide Anion Gap BUN Creatinine Estimated GFR POC Glucose 236 H 321 H Random Glucose Lactic Acid Calcium Magnesium Total Bilirubin AST ALT Alkaline Phosphatase C-Reactive Protein Total Protein Albumin Lipase Ur Collection Type Urine Color Urine Clarity Urine pH Ur Specific [place] Urine Protein Urine Glucose (UA) Urine Ketones Urine Occult Blood Urine Nitrate Urine Bilirubin Urine Urobilinogen Ur Leukocyte Esterase Urine RBC Urine WBC Ur Squamous Epith Cells Amorphous Sediment Granular Casts Ur Microscopic Review Urine Collection Time Vancomycin Trough 04/18/18 04/18/18 04/18/18 12:45 13:45 16:47 CBC w Diff WBC RBC Hgb Hct MCV MCH MCHC RDW Plt Count MPV Neut % (Auto) Lymph % (Auto) [place] % (Auto) Eos % (Auto) Baso % (Auto) Neut # (Auto) Lymph # (Auto) [place] # (Auto) Eos # (Auto) Baso # (Auto) WBC Differential Differential Comment ESR Sodium Potassium Chloride Carbon Dioxide Anion Gap BUN Creatinine Estimated GFR POC Glucose 264 H Random Glucose Lactic Acid Calcium Magnesium Total Bilirubin AST ALT Alkaline Phosphatase C-Reactive Protein 37.00 H Total Protein Albumin Lipase Ur Collection Type Clean catch Urine Color Yellow Urine Clarity Slightly cloudy Urine pH 5.5 Ur Specific [place] 1.025 Urine Protein 30 H Urine Glucose (UA) 500 H Urine Ketones Negative Urine Occult Blood Small H Urine Nitrate Negative Urine Bilirubin Negative Urine Urobilinogen 0.2 Ur Leukocyte Esterase Negative Urine RBC 0-3 Urine WBC 0-5 Ur Squamous Epith Cells 0-5 Amorphous Sediment Moderate H Granular Casts 1-3 H Ur Microscopic Review Microscopic reviewed Urine Collection Time 1345 Vancomycin Trough 04/18/18 04/19/18 04/19/18 20:22 09:54 10:33 CBC w Diff WBC 21.5 H RBC 3.30 L Hgb 9.5 L Hct 29.4 L MCV 89.1 MCH 28.8 MCHC 32.3 RDW 15.0 Plt Count 257 MPV 7.8 Neut % (Auto) 90.6 H Lymph % (Auto) 2.7 L [place] % (Auto) 6.6 Eos % (Auto) 0.1 Baso % (Auto) 0.0 Neut # (Auto) 19.5 H Lymph # (Auto) 0.6 L [place] # (Auto) 1.4 H Eos # (Auto) 0.0 Baso # (Auto) 0.0 WBC Differential . Differential Comment Auto diff final ESR Sodium Potassium Chloride Carbon Dioxide Anion Gap BUN Creatinine Estimated GFR POC Glucose 305 H 174 H Random Glucose Lactic Acid Calcium Magnesium Total Bilirubin AST ALT Alkaline Phosphatase C-Reactive Protein Total Protein Albumin Lipase Ur Collection Type Urine Color Urine Clarity Urine pH Ur Specific [place] Urine Protein Urine Glucose (UA) Urine Ketones Urine Occult Blood Urine Nitrate Urine Bilirubin Urine Urobilinogen Ur Leukocyte Esterase Urine RBC Urine WBC Ur Squamous Epith Cells Amorphous Sediment Granular Casts Ur Microscopic Review Urine Collection Time Vancomycin Trough 04/19/18 04/19/18 04/19/18 10:33 18:14 19:36 CBC w Diff WBC RBC Hgb Hct MCV MCH MCHC RDW Plt Count MPV Neut % (Auto) Lymph % (Auto) [place] % (Auto) Eos % (Auto) Baso % (Auto) Neut # (Auto) Lymph # (Auto) [place] # (Auto) Eos # (Auto) Baso # (Auto) WBC Differential Differential Comment ESR Sodium 132 L Potassium 3.8 Chloride 96 L D Carbon Dioxide 29.5 Anion Gap 7 BUN 25 H Creatinine 0.98 Estimated GFR 74 L POC Glucose 252 H 236 H Random Glucose 177 H Lactic Acid Calcium 7.7 L Magnesium 1.8 Total Bilirubin 0.7 AST 38 H ALT 22 Alkaline Phosphatase 96 C-Reactive Protein Total Protein 6.1 L D Albumin 1.6 L Lipase Ur Collection Type Urine Color Urine Clarity Urine pH Ur Specific [place] Urine Protein Urine Glucose (UA) Urine Ketones Urine Occult Blood Urine Nitrate Urine Bilirubin Urine Urobilinogen Ur Leukocyte Esterase Urine RBC Urine WBC Ur Squamous Epith Cells Amorphous Sediment Granular Casts Ur Microscopic Review Urine Collection Time Vancomycin Trough 04/20/18 04/20/18 04/20/18 06:37 06:37 08:38 CBC w Diff WBC 23.8 H RBC 3.37 L Hgb 9.9 L Hct 29.6 L MCV 87.9 MCH 29.3 MCHC 33.4 RDW 15.2 Plt Count 289 MPV 7.7 Neut % (Auto) 90.4 H Lymph % (Auto) 3.3 L [place] % (Auto) 6.1 Eos % (Auto) 0.1 Baso % (Auto) 0.1 Neut # (Auto) 21.5 H Lymph # (Auto) 0.8 L [place] # (Auto) 1.5 H Eos # (Auto) 0.0 Baso # (Auto) 0.0 WBC Differential . Differential Comment Auto diff final ESR Sodium 132 L Potassium 3.7 Chloride 96 L Carbon Dioxide 29.9 Anion Gap 6 BUN 18 Creatinine 0.80 Estimated GFR Greater than 89 POC Glucose 179 H Random Glucose 172 H Lactic Acid Calcium 7.6 L Magnesium Total Bilirubin AST ALT Alkaline Phosphatase C-Reactive Protein Total Protein Albumin Lipase Ur Collection Type Urine Color Urine Clarity Urine pH Ur Specific [place] Urine Protein Urine Glucose (UA) Urine Ketones Urine Occult Blood Urine Nitrate Urine Bilirubin Urine Urobilinogen Ur Leukocyte Esterase Urine RBC Urine WBC Ur Squamous Epith Cells Amorphous Sediment Granular Casts Ur Microscopic Review Urine Collection Time Vancomycin Trough 04/20/18 04/20/18 12:43 12:45 CBC w Diff WBC RBC Hgb Hct MCV MCH MCHC RDW Plt Count MPV Neut % (Auto) Lymph % (Auto) [place] % (Auto) Eos % (Auto) Baso % (Auto) Neut # (Auto) Lymph # (Auto) [place] # (Auto) Eos # (Auto) Baso # (Auto) WBC Differential Differential Comment ESR Sodium Potassium Chloride Carbon Dioxide Anion Gap BUN Creatinine Estimated GFR POC Glucose 211 H Random Glucose Lactic Acid Calcium Magnesium Total Bilirubin AST ALT Alkaline Phosphatase C-Reactive Protein Total Protein Albumin Lipase Ur Collection Type Urine Color Urine Clarity Urine pH Ur Specific [place] Urine Protein Urine Glucose (UA) Urine Ketones Urine Occult Blood Urine Nitrate Urine Bilirubin Urine Urobilinogen Ur Leukocyte Esterase Urine RBC Urine WBC Ur Squamous Epith Cells Amorphous Sediment Granular Casts Ur Microscopic Review Urine Collection Time Vancomycin Trough 13.2 H Result Diagrams: 04/20/18 06:37 04/20/18 06:37 Microbiology: Microbiology 04/18/18 04:30 Aerobic Blood Culture - Preliminary Blood - Peripheral No growth in 2 days Anaerobic Blood Culture - Preliminary gram positive cocci 04/18/18 05:00 Gram Stain - Final Wound - Foot Wound Culture - Preliminary Enterobacter cloacae S. aureus MRSA 04/18/18 04:50 Aerobic Blood Culture - Preliminary Blood - Peripheral No growth in 2 days Anaerobic Blood Culture - Preliminary No growth in 2 days Patient/Family Conference Family Conference Location: Bedside, Telephone Issues Discussed: First met with patient at bedside discussion included the following, then met with patient and daughter via phone and also discussed the following. * Palliative care role, purpose, approach * Additional medical, psychosocial, and spiritual history * Patients general health, functional status, and cognitive changes in the months leading up to the current hospitalization * Patient/family understanding of the current medical problems * Patient/family understanding of prognosis, expected trajectory without further aggressive or invasive tx. * Patients goals of care as best understood from advance directives and/or conversations and/or values * Current medical treatment options and benefits/burdens of those options * Likely scenarios comparing ongoing aggressive care with a transition to comfort measures only/review of hospice services * Questions answered to the best of my ability * Palliative care contact information provided Explore with him recent trajectory, psychosocial history. He endorses being told surgery was his only option to try to recover and that he is not interested in further surgeries. He requests no heroic measures including no CPR. 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 He indicates he wants this but cannot go home and less hospice provides 24/7 care because his who is blind will be unable to care for him. He also endorses that he does not want to go to a nursing facility. He endorses he has no one to take care of him 24/7. Review of hospice care center for symptom management with the possibility of placement if he survives longer term. He indicates he would be open to a care center however he also says he wants to stay in the hospital as long as possible may be until next week. I attempted to explore with him that staying in the hospital would be beneficial if he desire to pursue aggressive measures however may not meet inpatient admission requirements for the hospitalization if he did not wish for further aggressive or invasive measures. He indicates then may be he would wait for hospice and transition out after Thanksgi or possibly next week. Attempt to explore with him who would be his emergency decision maker he says probably his or his daughter. He then again tells me he wants a DNR. He tells me his pain is not adequately relieved with use of oral regimen he would like better pain relief currently 7 or 8 out of 10 goes down by a point or 2 after oral prn use. Following exam call to daughter and they are together. Explore with them at length my conversation with the patient. Explore with him prognosis and expected trajectory if right lower extremity wound is not treated/amputated. They understand patient will have limited life expectancy. Explore with him hospice care center services for acute symptom management however possible he could require longer term placement. They endorse they do not have ability to care for him at home 22/12 at this time. They are supportive of whatever the patient's wishes are, they indicate that he is been "talking about this for a while now "and that he does not wish to suffer any longer. Daughter details that he has had many years of chronic pain secondary to his RA, and that in the past weeks and months he has had increased pain and very little relief. They are supportive of hospice, comfort oriented goals and DNR status. Assessment and Plan - Disease Oriented Problem List (1) COPD (chronic obstructive pulmonary disease) (2) Depression (3) Diabetes (4) Infection of wound due to methicillin resistant Staphylococcus aureus (MRSA) (5) PVD (peripheral vascular disease) (6) Decubitus ulcer of right heel, stage 4 (7) Gangrene of right foot - Symptom Scale (1) Pain 0-10 Scale: 7 (2) Dyspnea 0-10 Scale: Unable to quantify Pertinent Non-Medical Issues: Psychosocial: Has lived in [place] 30+ years. to his for 55 years. Most recently live locally with his who is legally blind. Also supported by adult daughter who lives in this area. He and his moved over here from [facility] over the summer to be closer to daughter. Spiritual: Anabapt[employer] lm, welcome guardian ad litem visits Legal: Patient is alert and oriented x3. For the most part he is appropriate though at times seems mildly forgetful or with slight confusion of options. Able to make his own decisions though would recommend supported by his and daughter whom he involves. Ethical issues impacting care: No ethical issues identified Important Contacts: Daughter Fany Alves [phone] Pebbles Evans [phone] Prognosis: This patient was admitted with a chronic wound to right heel. He has multiple chronic medical conditions. He has significant vascular disease process, status post vascular and podiatry consult, has osteomyelitis, gangrene, limb is not salvageable recommended for BKA. Patient does not wish to proceed with any surgical interventions. Without further intervention infection, sepsis will worsen and would be expected to cause patient's . Appropriate for hospice if goals compatible. Code Status: No Code DNR Plan: Legal decision maker:patient is alert and oriented x3. For the most part he is appropriate though at times seems mildly forgetful or with slight confusion of options. Able to make his own decisions though would recommend supported by his and daughter whom he involves. Goals: Goals are comfort oriented. Patient request hospice transition, comfort measures only. He is not interested in any surgeries or further invasive measures. He wishes to go to a hospice care center however he also asked questions about waiting until after Thanksgiving or next week though I have discussed this with him. Hospice order to be placed. Family supportive of this. *Called to hospice admissions. CODE STATUS: DNR. SYMPTOMS: --pain- RLE necrotic wound, MRSA +. Has prn norco 5mg-- used x2 yesterday, x3 today. + on gabapentin 300mg BID. Patient endorses pain 7 or 8 out of 10, with very little relief from oral [place]. He would feel pain was better controlled if he could get it down to a 4. Goals expresses comfort oriented. He endorses no allergies. He endorses has not ever received IV medicines previously. Recommend increase norco to 10mg to see if better controlled, and for pain unrelieved by ORAL PRN, rec. morphine 2 mg IV every 4 hours PRN pain mild to moderate, morphine 4mg IV every 4 hours PRN pain severe. Daughter endorses patient has had long-term chronic pain secondary to RA. He had been on oxycodone outpatient. --dyspnea -patient with history CAD, CABG, COPD. Endorses chronic shortness of breath especially with activity. He is visibly mildly short of breath with conversation today, he endorses that this is the way his breathing always is. prn opiates would help with chronic dyspnea as well Palliative care will continue to follow during hospital course as condition evolves, to assist patient/decision-maker with understanding of medical conditions, weighing benefits/burdens of treatment options, for clarification of goals of treatment. Additionally will assist with any symptoms of palliative concern Appreciation Thank you for the opportunity to participate in the care of Blake Evans. Attestation Attestation: To help prompt me to consider important information that might be impacting today's encounter and assessment, information from prior notes written by myself or my colleagues may have been "brought forward" into today's note. My signature on this note, however, is an attestation that I personally performed the exam, history, and/or decision-making noted today, and, unless otherwise indicated, the interactions with patient, family, and staff as well as the review of records all occurred today. I also attest that the listed assessment and stated plan reflect my best clinical judgment today based on the combination of historical information, prior notes, and today's exam/ interactions. When time spent is documented, it refers only to time spent today by the signer, or if indicated, combined time spent today by collaborating physician/nurse practitioner.
[2018-04-20] MEDS: Insulin Detemir Inj 1,000 UNIT/10 ML Vial SQ SCH (21:21)
[2018-04-21] MEDS ORDERED: Melatonin 5 MG Tablet PO ONE (00:13)
[2018-04-21] MEDS: Piperacil/Tazo 3.375 GM Premix 50 ML IV.SIG SCH ×4 (01:07→18:18)
[2018-04-21] MEDS: Sod Chloride 0.9% Inj 1,000 ML IV.CONT SCH ×3 (01:10→09:47)
[2018-04-21] MEDS: Vancomycin Inj 1,500 MG in Sodium Chlor 0.9% Inj 500 ML IV.SIG SCH (06:42)
[2018-04-21] MEDS: Insulin NovoLOG Aspart Correctional Sugar Inj SQ SCH ×3 (07:47→18:14)
--- NOTE | 2018-04-21 08:20 | P.PNIM ---
Subjective Interval history: f/u; right foot infection in no acute distress but ill looking. complaining of pain to the back which is not controlled with oral meds. no fever. Physical Exam Vital signs: Vital Signs 04/20/18 11:23 04/20/18 12:00 04/20/18 16:00 Temperature 98.3 F 98.3 F Pulse Rate 67 78 Respiratory Rate 18 20 Blood Pressure 157/72 H 192/87 H Pulse Oximetry 92 L 97 93 L 04/20/18 17:51 04/20/18 20:00 04/21/18 00:00 Temperature 98.9 F 99.6 F Pulse Rate 71 69 Respiratory Rate 19 18 Blood Pressure 158/76 H 154/70 H Pulse Oximetry 93 L 96 97 04/21/18 04:00 Temperature 97.5 F L Pulse Rate 65 Respiratory Rate 19 Blood Pressure 159/74 H Pulse Oximetry 96 Intake & Output 04/20/18 04/21/18 04/21/18 18:59 06:59 18:59 Intake Total 2140 / 2140 1110 / 1110 Output Total 550 / 550 Balance 2140 / 2140 560 / 560 Weight 113.2 kg Intake: IV 1660 / 1660 1110 / 1110 NS Inj 1,000 ML @ 100 mls/hr IV 1000 / 1000 1000 / 1000 .CONT .Q10H MARCY Rx#:[id number] Zosyn 3.375 GM Premix 50 ML @ 110 / 110 110 / 110 100 mls/hr IV.SIG Q6H MARCY Rx#: [id number] Vancomycin Inj 1,500 MG In NS 550 / 550 Inj 500 ML @ 250 mls/hr IV.SIG Q18H MARCY Rx#:[id number] Oral 480 / 480 Output: Urine 550 / 550 Other: Post Void Residual 700 # Incontinent Voids 1 Date of Last Bowel Movement 04/20/18 # Bowel Movements 2 - Constitutional no acute distress (but ill looking.) - Routine Respiratory Exam Present: CTA bilaterally - Routine Cardiovascular Exam Present: RRR - Routine Abdominal Exam Present: soft - Routine Extremities Exam Comments: gangrene right heel. - Routine Neurological Exam Present: alert, oriented X3 Results - Labs CBC & Chem 7: 04/20/18 06:37 04/20/18 06:37 Laboratory Results - last 24 hr 04/20/18 04/20/18 04/20/18 08:38 12:43 12:45 POC Glucose 179 H 211 H Vancomycin Trough 13.2 H 04/20/18 04/20/18 04/21/18 17:16 19:25 07:19 POC Glucose 183 H 185 H 94 Vancomycin Trough Microbiology 04/18/18 04:30 Blood - Peripheral Aerobic Blood Culture - Preliminary No growth in 2 days 04/18/18 04:30 Blood - Peripheral Anaerobic Blood Culture - Preliminary gram positive cocci 04/18/18 05:00 Wound - Foot Gram Stain - Final 04/18/18 05:00 Wound - Foot Wound Culture - Preliminary Enterobacter cloacae S. aureus MRSA 04/18/18 04:50 Blood - Peripheral Aerobic Blood Culture - Preliminary No growth in 2 days 04/18/18 04:50 Blood - Peripheral Anaerobic Blood Culture - Preliminary No growth in 2 days Assessment and Plan - Plan 1. Severe Sepsis secondary to right diabetic foot ulcer CT of the right foot with possible osteomyelitis and dislocation of the second MTP joint. podiatry consult appreciated and recommended BKA - however the patient declined. Hospice consulted. 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 3. renal insufficiency with unknown duration continue to monitor the renal function. 4. Poorly controlled diabetes on subq levemir.Continue low-dose insulin sliding scale. We will adjust his diabetes regimen as needed. 5. hyponatremia; due to hyperglycemia; improved-will monitor 5.DVT prophylaxis;subq Heparin Discharge Planning: awaiting hospice evaluation.
[2018-04-21] MEDS ORDERED: HYDROmorphone PF Inj 1 MG/ML Ampul IV.PUSH PRN (08:30)
[2018-04-21] MEDS: Heparin - SQ 10,000 UNITS/ML Vial SQ SCH (09:04)
[2018-04-21] MEDS: FLUoxetine 10 MG Capsule PO SCH (09:04)
[2018-04-21] MEDS: amLODIPine 5 MG Tablet PO SCH (09:04)
[2018-04-21] MEDS: Senna/Docusate Sodium 8.6/50 MG Tablet PO SCH (09:04)
[2018-04-21] MEDS: Gabapentin 300 MG Capsule PO SCH (09:04)
[2018-04-21] MEDS: Aspirin 325 MG Tablet PO SCH (09:04)
[2018-04-21] MEDS: Sodium Chloride 0.9% 2 ML Flush BID IV.FLUSH SCH (09:05)
--- NOTE | 2018-04-21 11:43 | P.PNPAL ---
Reason for Visit Reason for visit: a. To assist with evaluation and management of symptoms including: dyspnea, pain b. To assist medical decision maker(s) with: better understanding of current medical conditions; weighing benefits/burdens of medical treatment options; making medical treatment decisions. Subjective Subjective/Interval History: Patient seen today to follow-up on comfort, goals. Hospice has set up a meeting with patient and family at 3 PM today. Has remained stable overnight. No new labs or imaging. P.o. pain meds discontinued by medical attending started on IV hydromorphone. Patient seen in room no visitors present. He is alert and mostly oriented at times he is repetitive, forgetful. He asks me who I am he thinks he remembers me from yesterday but cannot remember what I talked to him about. Review I was the one discussed his goals of treatment. Upon this he seems to recall and tells me he wants "no heroics," he just wants to be comfortable and "do you understand why I want this?". He then further explains that he does not want further surgeries or interventions is been too too much already and he has too many other medical problems to be well again. Indicates he wants to be pain- free and be allowed to rest and go when it is this time. He endorses he hasnt been sleeping well due to pain. He asked me how long does he have. Explore prognosis most likely in the range of days to a week or so depending on illness going forward. Endorses his pain overall is a little better today with the new medication however he can still feel the pain going up his foot and up to just below his knee. He feels like the pain is coming back already though I note he is not due for another dose of PRN for another 1.5 hours. He asks if his dog can visit here, advise that not sure about here, but that dogs often visit pts at [facility]. call to Dr Contreras, discussed pain regimen, agrees palliative may further adjust PRNS as needed/indicated. Objective Vital Signs: Vital Signs 04/20/18 12:00 04/20/18 16:00 04/20/18 17:51 Temperature 98.3 F 98.3 F Pulse Rate 67 78 Respiratory Rate 18 20 Blood Pressure 157/72 H 192/87 H Pulse Oximetry 97 93 L 93 L 04/20/18 20:00 04/21/18 00:00 04/21/18 04:00 Temperature 98.9 F 99.6 F 97.5 F L Pulse Rate 71 69 65 Respiratory Rate 19 18 19 Blood Pressure 158/76 H 154/70 H 159/74 H Pulse Oximetry 96 97 96 04/21/18 08:00 04/21/18 09:07 04/21/18 09:43 Temperature 97.7 F Pulse Rate 61 60 Respiratory Rate 16 16 Blood Pressure 141/59 H Pulse Oximetry 96 96 Intake & Output 04/20/18 04/21/18 04/21/18 18:59 06:59 18:59 Intake Total 2140 / 2140 1110 / 1110 550 / 550 Output Total 550 / 550 Balance 2140 / 2140 560 / 560 550 / 550 Weight 113.2 kg Intake: IV 1660 / 1660 1110 / 1110 550 / 550 NS Inj 1,000 ML @ 100 mls/hr IV 1000 / 1000 1000 / 1000 .CONT .Q10H MARCY Rx#:[id number] Zosyn 3.375 GM Premix 50 ML @ 110 / 110 110 / 110 100 mls/hr IV.SIG Q6H MARCY Rx#: [id number] Vancomycin Inj 1,500 MG In NS 550 / 550 550 / 550 Inj 500 ML @ 250 mls/hr IV.SIG Q18H MARCY Rx#:[id number] Oral 480 / 480 Output: Urine 550 / 550 Other: Post Void Residual 700 # Incontinent Voids 1 Date of Last Bowel Movement 04/20/18 04/20/18 # Bowel Movements 2 Physical Exam: CONSTITUTIONAL/GENERAL: This is an adequately nourished patient, alert, appropriate, foul odor present in room from wound TUBES/LINES/DRAINS:PIV BUE. SKIN: No jaundice, rashes. Ecchymoses on upper extremities. + large black wound rt heel. +erythema spreading up foot/lower leg. Poor cap refill. Not able to palp pedal pulse. Skin otherwise warm/dry . 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 No JVD. + large black wound rt heel. +erythema spreading up foot/lower leg. Poor cap refill. Not able to palp pedal pulse. trace edema to hands. RESPIRATORY/CHEST: Symmetric, unlabored respirations. Mildly tachypneic during exam. Clear to auscultation- decreased air movement. Expiratory wheezes right upper. Breath sounds equal bilaterally. GASTROINTESTINAL: Abdomen soft, round non-tender, nondistended. No palpable masses. No guarding. Bowel sounds present. MUSCULOSKELETAL: Extremities without clubbing, cyanosis. trace edema to Bilat hands. 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 Right lower extremity with large wound as described under skin. NEUROLOGICAL: Awake and alert, oriented x2-3. Forgetful, repetitive at times. Moves all 4 extremities. Motor and sensory grossly within normal limits. Follows commands. Cognitively sharp-though appears slightly forgetful perhaps insight slightly impaired at times. Moves all extremities. PSYCHIATRIC: No obvious anxiety/depression. no apparent hallucinations or other psychotic thought process. Diagnostic Tests Laboratory: Laboratory Results - last 72 hr 04/18/18 04/18/18 04/18/18 12:45 12:45 13:45 WBC RBC Hgb Hct MCV MCH MCHC RDW Plt Count MPV Neut % (Auto) Lymph % (Auto) Bradford % (Auto) Eos % (Auto) Baso % (Auto) Neut # (Auto) Lymph # (Auto) Bradford # (Auto) Eos # (Auto) Baso # (Auto) WBC Differential Differential Comment ESR 103 H Sodium Potassium Chloride Carbon Dioxide Anion Gap BUN Creatinine Estimated GFR POC Glucose Random Glucose Calcium Magnesium Total Bilirubin AST ALT Alkaline Phosphatase C-Reactive Protein 37.00 H Total Protein Albumin Ur Collection Type Clean catch Urine Color Yellow Urine Clarity Slightly cloudy Urine pH 5.5 Ur Specific Temple 1.025 Urine Protein 30 H Urine Glucose (UA) 500 H Urine Ketones Negative Urine Occult Blood Small H Urine Nitrate Negative Urine Bilirubin Negative Urine Urobilinogen 0.2 Ur Leukocyte Esterase Negative Urine RBC 0-3 Urine WBC 0-5 Ur Squamous Epith Cells 0-5 Amorphous Sediment Moderate H Granular Casts 1-3 H Ur Microscopic Review Microscopic reviewed Urine Collection Time 1345 Vancomycin Trough 04/18/18 04/18/18 04/19/18 16:47 20:22 09:54 WBC RBC Hgb Hct MCV MCH MCHC RDW Plt Count MPV Neut % (Auto) Lymph % (Auto) Bradford % (Auto) Eos % (Auto) Baso % (Auto) Neut # (Auto) Lymph # (Auto) Bradford # (Auto) Eos # (Auto) Baso # (Auto) WBC Differential Differential Comment ESR Sodium Potassium Chloride Carbon Dioxide Anion Gap BUN Creatinine Estimated GFR POC Glucose 264 H 305 H 174 H Random Glucose Calcium Magnesium Total Bilirubin AST ALT Alkaline Phosphatase C-Reactive Protein Total Protein Albumin Ur Collection Type Urine Color Urine Clarity Urine pH Ur Specific Temple Urine Protein Urine Glucose (UA) Urine Ketones Urine Occult Blood Urine Nitrate Urine Bilirubin Urine Urobilinogen Ur Leukocyte Esterase Urine RBC Urine WBC Ur Squamous Epith Cells Amorphous Sediment Granular Casts Ur Microscopic Review Urine Collection Time Vancomycin Trough 04/19/18 04/19/18 04/19/18 10:33 10:33 18:14 WBC 21.5 H RBC 3.30 L Hgb 9.5 L Hct 29.4 L MCV 89.1 MCH 28.8 MCHC 32.3 RDW 15.0 Plt Count 257 MPV 7.8 Neut % (Auto) 90.6 H Lymph % (Auto) 2.7 L Bradford % (Auto) 6.6 Eos % (Auto) 0.1 Baso % (Auto) 0.0 Neut # (Auto) 19.5 H Lymph # (Auto) 0.6 L Bradford # (Auto) 1.4 H Eos # (Auto) 0.0 Baso # (Auto) 0.0 WBC Differential . Differential Comment Auto diff final ESR Sodium 132 L Potassium 3.8 Chloride 96 L D Carbon Dioxide 29.5 Anion Gap 7 BUN 25 H Creatinine 0.98 Estimated GFR 74 L POC Glucose 252 H Random Glucose 177 H Calcium 7.7 L Magnesium 1.8 Total Bilirubin 0.7 AST 38 H ALT 22 Alkaline Phosphatase 96 C-Reactive Protein Total Protein 6.1 L D Albumin 1.6 L Ur Collection Type Urine Color Urine Clarity Urine pH Ur Specific Temple Urine Protein Urine Glucose (UA) Urine Ketones Urine Occult Blood Urine Nitrate Urine Bilirubin Urine Urobilinogen Ur Leukocyte Esterase Urine RBC Urine WBC Ur Squamous Epith Cells Amorphous Sediment Granular Casts Ur Microscopic Review Urine Collection Time Vancomycin Trough 04/19/18 04/20/18 04/20/18 19:36 06:37 06:37 WBC 23.8 H RBC 3.37 L Hgb 9.9 L Hct 29.6 L MCV 87.9 MCH 29.3 MCHC 33.4 RDW 15.2 Plt Count 289 MPV 7.7 Neut % (Auto) 90.4 H Lymph % (Auto) 3.3 L Bradford % (Auto) 6.1 Eos % (Auto) 0.1 Baso % (Auto) 0.1 Neut # (Auto) 21.5 H Lymph # (Auto) 0.8 L Bradford # (Auto) 1.5 H Eos # (Auto) 0.0 Baso # (Auto) 0.0 WBC Differential . Differential Comment Auto diff final ESR Sodium 132 L Potassium 3.7 Chloride 96 L Carbon Dioxide 29.9 Anion Gap 6 BUN 18 Creatinine 0.80 Estimated GFR Greater than 89 POC Glucose 236 H Random Glucose 172 H Calcium 7.6 L Magnesium Total Bilirubin AST ALT Alkaline Phosphatase C-Reactive Protein Total Protein Albumin Ur Collection Type Urine Color Urine Clarity Urine pH Ur Specific Temple Urine Protein Urine Glucose (UA) Urine Ketones Urine Occult Blood Urine Nitrate Urine Bilirubin Urine Urobilinogen Ur Leukocyte Esterase Urine RBC Urine WBC Ur Squamous Epith Cells Amorphous Sediment Granular Casts Ur Microscopic Review Urine Collection Time Vancomycin Trough 04/20/18 04/20/18 04/20/18 08:38 12:43 12:45 WBC RBC Hgb Hct MCV MCH MCHC RDW Plt Count MPV Neut % (Auto) Lymph % (Auto) Bradford % (Auto) Eos % (Auto) Baso % (Auto) Neut # (Auto) Lymph # (Auto) Bradford # (Auto) Eos # (Auto) Baso # (Auto) WBC Differential Differential Comment ESR Sodium Potassium Chloride Carbon Dioxide Anion Gap BUN Creatinine Estimated GFR POC Glucose 179 H 211 H Random Glucose Calcium Magnesium Total Bilirubin AST ALT Alkaline Phosphatase C-Reactive Protein Total Protein Albumin Ur Collection Type Urine Color Urine Clarity Urine pH Ur Specific Temple Urine Protein Urine Glucose (UA) Urine Ketones Urine Occult Blood Urine Nitrate Urine Bilirubin Urine Urobilinogen Ur Leukocyte Esterase Urine RBC Urine WBC Ur Squamous Epith Cells Amorphous Sediment Granular Casts Ur Microscopic Review Urine Collection Time Vancomycin Trough 13.2 H 04/20/18 04/20/18 04/21/18 17:16 19:25 07:19 WBC RBC Hgb Hct MCV MCH MCHC RDW Plt Count MPV Neut % (Auto) Lymph % (Auto) Bradford % (Auto) Eos % (Auto) Baso % (Auto) Neut # (Auto) Lymph # (Auto) Bradford # (Auto) Eos # (Auto) Baso # (Auto) WBC Differential Differential Comment ESR Sodium Potassium Chloride Carbon Dioxide Anion Gap BUN Creatinine Estimated GFR POC Glucose 183 H 185 H 94 Random Glucose Calcium Magnesium Total Bilirubin AST ALT Alkaline Phosphatase C-Reactive Protein Total Protein Albumin Ur Collection Type Urine Color Urine Clarity Urine pH Ur Specific Temple Urine Protein Urine Glucose (UA) Urine Ketones Urine Occult Blood Urine Nitrate Urine Bilirubin Urine Urobilinogen Ur Leukocyte Esterase Urine RBC Urine WBC Ur Squamous Epith Cells Amorphous Sediment Granular Casts Ur Microscopic Review Urine Collection Time Vancomycin Trough Result Diagrams: 04/20/18 06:37 04/20/18 06:37 Microbiology: Microbiology 04/18/18 05:00 Gram Stain - Final Wound - Foot Wound Culture - Final Enterobacter cloacae S. aureus MRSA 04/18/18 04:30 Aerobic Blood Culture - Preliminary Blood - Peripheral No growth in 3 days Anaerobic Blood Culture - Preliminary gram positive cocci 04/18/18 04:50 Aerobic Blood Culture - Preliminary Blood - Peripheral No growth in 3 days Anaerobic Blood Culture - Preliminary pleomorphic gram positive rods Assessment and Plan - Disease Oriented Problem List (1) COPD (chronic obstructive pulmonary disease) (2) Depression (3) Diabetes (4) Infection of wound due to methicillin resistant Staphylococcus aureus (MRSA) (5) PVD (peripheral vascular disease) (6) Decubitus ulcer of right heel, stage 4 (7) Gangrene of right foot Pertinent Non-Medical Issues: Psychosocial: Has lived in [place] 30+ years. to his for 55 years. Most recently live locally with his who is legally blind. Also supported by adult daughter who lives in this area. He and his moved over here from [facility] over the summer to be closer to daughter. Spiritual: Taoist lm, welcome buyers' agent visits Legal: Patient is alert and oriented x3. For the most part he is appropriate though at times seems mildly forgetful or with slight confusion of options. Able to make his own decisions though would recommend supported by his and daughter whom he involves. Ethical issues impacting care: No ethical issues identified Important Contacts: Daughter Fany Alves [phone] Pebbles Evans [phone] Prognosis: This patient was admitted with a chronic wound to right heel. He has multiple chronic medical conditions. He has significant vascular disease process, status post vascular and podiatry consult, has osteomyelitis, gangrene, limb is not salvageable recommended for BKA. Patient does not wish to proceed with any surgical interventions. Without further intervention infection, sepsis will worsen and would be expected to cause patient's . Appropriate for hospice if goals compatible. Code Status: No Code DNR Plan: Legal decision maker:patient is alert and oriented x3. For the most part he is appropriate though at times seems mildly forgetful or with slight confusion of options. Able to make his own decisions though would recommend supported by his and daughter whom he involves. Goals: Goals are comfort oriented. Patient request hospice transition, comfort measures only. He is not interested in any surgeries or further invasive measures. He wishes to go to a hospice care center . Still with some pain today, requests better pain control. Planned hospice meeting 3pm today; would anticipate transition to a hospice care center today or tomorrow if family in agreement. CODE STATUS: DNR. SYMPTOMS: --pain- RLE necrotic wound, MRSA +. Has prn norco 5mg-- used x2 yesterday, x3 today. + on gabapentin 300mg BID. Patient endorses pain 7 or 8 out of 10, with very little relief from oral [place]. He would feel pain was better controlled if he could get it down to a 4. Goals expresses comfort oriented. He endorses no allergies. He endorses has not ever received IV medicines previously. Daughter endorses patient has had long-term chronic pain secondary to RA. He had been on oxycodone outpatient. started on IV hydromorphone today, endorses some relief though still with breakthrough pain before next dose due. Adjusted elbow from every 4 hours to every 3 hours, will monitor for effectiveness. He indicates current dosage does bring the pain down but it feels to be wearing off. We will monitor effective with increased frequency may require dosing range 0.5-0.75 of hydromorphone depending on requirements/effectiveness. --dyspnea -patient with history CAD, CABG, COPD. Endorses chronic shortness of breath especially with activity. He denies shortness of breath today. He is visibly short of breath with conversation today, he endorses that this is the way his breathing always is. prn opiates will help with chronic dyspnea as well Palliative care will continue to follow during hospital course as condition evolves, to assist patient/decision-maker with understanding of medical conditions, weighing benefits/burdens of treatment options, for clarification of goals of treatment. Additionally will assist with any symptoms of palliative concern Attestation Attestation: To help prompt me to consider important information that might be impacting today's encounter and assessment, information from prior notes written by myself or my colleagues may have been "brought forward" into today's note. My signature on this note, however, is an attestation that I personally performed the exam, history, and/or decision-making noted today, and, unless otherwise indicated, the interactions with patient, family, and staff as well as the review of records all occurred today. I also attest that the listed assessment and stated plan reflect my best clinical judgment today based on the combination of historical information, prior notes, and today's exam/ interactions. When time spent is documented, it refers only to time spent today by the signer, or if indicated, combined time spent today by collaborating physician/nurse practitioner.
[2018-04-21] MEDS: HYDROmorphone PF Inj 1 MG/ML Ampul IV.PUSH PRN ×3 (12:06→18:14)
[2018-04-21 14:08] VITALS: O2SAT 97
--- NOTE | 2018-04-21 14:29 | P.DS ---
Date of admission: 04/18/18 12:27 Primary care physician: UNKNOWN Brief History from admission: Patient is a 77-year-old male with a diagnosis of hypertension, does lipidemia, poorly controlled diabetes, left BKA, coronary artery disease status post CABG in the past. The patient presented to our facility with complaints of foul- smelling right lateral foot. The patient has a dark necrotic ulceration of the right foot with a harsh foul smell. He was evaluated in the emergency department found to have a significantly elevated WBC count, and a low-grade fever. He also has some pain of the right lateral foot. She he denies any fevers or chills while at home, no abdominal pain, no chest pain, no shortness of breath. He does not have any other complaints. Family history significant for diabetes, hypertension. DS: Summary Hospital Course: 1. Severe Sepsis secondary to right diabetic foot ulcer CT of the right foot with possible osteomyelitis and dislocation of the second MTP joint. podiatry consult appreciated and recommended BKA - however the patient declined. Hospice consulted. 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 3. renal insufficiency with unknown duration continue to monitor the renal function. 4. Poorly controlled diabetes on subq levemir.Continue low-dose insulin sliding scale. We will adjust his diabetes regimen as needed. 5. hyponatremia; due to hyperglycemia; improved-will monitor - Time Spent with Patient Total time spent providing and/or coordinating discharge services: Less than 30 minutes - Quality: VTE Deep Vein Thrombosis/Pulmonary Embolism Present on Admission: No Exam Vital signs: Vital Signs 04/20/18 16:00 04/20/18 17:51 04/20/18 20:00 Temperature 98.3 F 98.9 F Pulse Rate 78 71 Respiratory Rate 20 19 Blood Pressure 192/87 H 158/76 H Pulse Oximetry 93 L 93 L 96 04/21/18 00:00 04/21/18 04:00 04/21/18 08:00 Temperature 99.6 F 97.5 F L 97.7 F Pulse Rate 69 65 61 Respiratory Rate 18 19 16 Blood Pressure 154/70 H 159/74 H 141/59 H Pulse Oximetry 97 96 96 04/21/18 09:07 04/21/18 09:43 04/21/18 12:00 Temperature 98 F Pulse Rate 60 59 L Respiratory Rate 16 18 Blood Pressure 132/65 Pulse Oximetry 96 97 Intake & Output 04/20/18 04/21/18 04/21/18 18:59 06:59 18:59 Intake Total 2140 / 2140 1110 / 1110 600 / 600 Output Total 550 / 550 Balance 2140 / 2140 560 / 560 600 / 600 Weight 113.2 kg Intake: IV 1660 / 1660 1110 / 1110 600 / 600 NS Inj 1,000 ML @ 100 mls/hr IV 1000 / 1000 1000 / 1000 .CONT .Q10H MARCY Rx#:[id number] Zosyn 3.375 GM Premix 50 ML @ 110 / 110 110 / 110 50 / 50 100 mls/hr IV.SIG Q6H MARCY Rx#: [id number] Vancomycin Inj 1,500 MG In NS 550 / 550 550 / 550 Inj 500 ML @ 250 mls/hr IV.SIG Q18H MARCY Rx#:[id number] Oral 480 / 480 Output: Urine 550 / 550 Other: Post Void Residual 700 # Incontinent Voids 1 Date of Last Bowel Movement 04/20/18 04/20/18 # Bowel Movements 2 - Constitutional no acute distress (but ill-looking.) - Routine Respiratory Exam Present: CTA bilaterally - Routine Cardiovascular Exam Present: RRR - Routine Abdominal Exam Present: soft - Routine Extremities Exam Comments: right heel gangrene. - Routine Neurological Exam Present: alert Results Procedures completed during hospitalization: none. Labs on day of discharge: Labs from last 24 hours 04/21/18 04/21/18 04/20/18 12:04 07:19 19:25 POC Glucose 102 94 185 H 04/20/18 17:16 POC Glucose 183 H Preliminary micro results at discharge 04/18/18 04:30 Aerobic Blood Culture - Preliminary Blood - Peripheral No growth in 3 days Anaerobic Blood Culture - Preliminary gram positive cocci 04/18/18 04:50 Aerobic Blood Culture - Preliminary Blood - Peripheral No growth in 3 days Anaerobic Blood Culture - Preliminary pleomorphic gram positive rods - Impressions ITS Impressions Extremity Arterial Study 04/18/18 00:00 CONCLUSION: 1. Severe reduction of the SCOOBY on the right. Foot X-Ray 04/18/18 00:00 CONCLUSION: Soft tissue air overlying the plantar aspect of the foot with no osseous abnormality identified to suggest osteomyelitis within this region. No radiopaque foreign body. Chest X-Ray 04/18/18 04:48 CONCLUSION: Negative examination. Numerous median sternotomy wires. Lungs are clear. 3D Reconstruction 04/19/18 00:00 CONCLUSION: 1. Three-dimensional images for interpretation and surgical planning Arterial Ultrasound 04/19/18 00:00 CONCLUSION: 1. Findings most consistent with hemodynamically significant inflow stenosis which corresponds to extensive calcified plaque in the right common femoral artery noted on recent CTA exam. Foot CT 04/19/18 00:00 CONCLUSION: 1. Extensive air throughout the plantar musculature and around the tomasz midfoot possibly originating from a lateral soft tissue ulcer. There is some air within the calcaneus adjacent to the lateral soft tissue ulcer almost certainly osteomyelitis. 2. Dislocation of the second MTP joint 3. Mild hallux valgus deformity Discharge Plan - Discharge Condition Condition: Serious - Physicians Team Primary Care Provider: UNKNOWN, Attending Provider: Smiley Reagan Other Providers: Elvie Mejia MD ; Henrietta Boyce DPM ; Garrison Calvo MD ; Katie Ivy MD ; Danay Lopez MD
[2018-04-21 18:24] VITALS: BP 145/68; PULSE 51; RESP 20; TEMP 97
== END 2018-04-21 21:00 | disposition hospice, inpatient (51) ==
LOC: EDBD → PHED 04:15 → PHEDA 04:15 → PH3 06:07 → N04 21:58
PROVIDERS: ADMIT Internal Medicine; ATTEND Internal Medicine